=== PATIENT | female | born 1950 | race Caucasian/White ===

== ENCOUNTER 2017-08-26 14:02 | Observation (INO) | payer BC, OTHER ==
[2017-08-26 14:06] VITALS: BMI 30.7
--- NOTE | 2017-08-26 15:24 | RAD ---
HISTORY: Right wrist pain Study: Two views right forearm Comparison: None Findings: Acute cortical disruption of the distal radius with posterior lateral displacement of the distal frac ture fragment. IMPRESSION: 1. Acute fracture of the distal radius. Reported By:
[2017-08-26] MEDS ORDERED: DEMEROL INJ IM ONE (16:22)
[2017-08-26] MEDS ORDERED: PHENERGAN INJ 25 MG IM ONE (16:22)
[2017-08-26] MEDS ORDERED: DEMEROL INJ ONE (16:24)
[2017-08-26] MEDS ORDERED: PHENERGAN INJ 25 MG ONE (16:24)
--- NOTE | 2017-08-26 16:30 | DR.EXTPAIN ---
HPI - Time seen Time seen: 03:03 - PCP Primary Care Physician: NLD - Complaint/Symptoms Chief Complaint Doctor Comments: Patient states she was going up the steps at home with two bags of groceries and lost her balance and fell backwards landing on her right hand. State she is having right wrist pain but is able to move her fingers. She denies head trauma or LOC. States the pain is 8 of 10. States she is a patient of Dr. Vargas in [facility]. She denies chest pain, SOB or palpation. Chief Complaint:: PT. C/O RIGHT WRIST/FOREARM PAIN S/P FALL. DEFORMITY NOTED TO RIGHT WRIST AREA. - Nurses notes reviewed Nurses Notes Review: Yes - Source History Provided: Patient - Mode of arrival Mode of Arrival: Ambulatory - Timing Onset of Chief Complaint: 08/26/17 - Context History of: None, Arthritis - Associated signs and symptoms Associated Signs and Symptoms: Pain PMH - PMH Past Medical History: Yes Past Medical History: Depression, Kidney Stones Past Surgical History: Yes Surgical History: Appendectomy, Hysterectomy, Ortho Surgery, Lithotripsy Past Surgical History Comment: RIGHT FOOT, HEMORRHOIDECTOMY - Family History History of Family Medical Conditions: No - Social History Does patient currently use any type of tobacco product: No Have you used tobacco products in the last 12 months: No Type of Tobacco Use: None Does any household member use tobacco: No Alcohol Use: None Do you use any recreational Drugs:: No Lives With: Spouse Lives Where: Home - infectious screening In the last 2 months have you had wt loss of >10#?: NO Have you had fever, night sweats or hemotysis?: No Have you traveled outside the country in the last 6 months?: No Isolation: Standard ROS - Review of Systems Constitutional: No Symptoms Reported. negative: See HPI, Chills, Diaphoresis, Fever, Malaise, Weakness, Irritable, Fatigue, Loss of Appetite, Other Eyes: No Symptoms Reported ENTM: No Symptoms Reported Respiratoy: No Symptoms Reported. negative: See HPI, Productive Cough, Non- Productive Cough, Moist Cough, Dry Cough, Hacking Cough, Barking Cough, Brassy Cough, Orthopnea, Short of Breath, Stridor, Wheezing, Hemoptysis, Other Cardiovascular: No Symptoms Reported. negative: See HPI, Chest Pain, Edema, Palpitations, Syncope, Cyanosis, Skin Mottling, Other Gastrointestinal/Abdominal: No Symptoms Reported Genitourinary: No Symptoms Reported. negative: See HPI, Discharge, Dysuria, Frequency, Hematuria, Pain, Bleeding, Other Neurological: No Symptoms Reported Musculoskeletal: No Symptoms Reported, Right, Wrist (deformity) Integumentary: No Symptoms Reported Hematologic/Lymphatic: No Symptoms Reported Endocrine: No Symptoms Reported Psychiatric: No Symptoms Reported. negative: See HPI, Anxiety, Depression, Hallucinations, Excessive crying, Suicidal, Other PE - Vital Signs Vitals: Temperature 97.9 F Pulse Rate 65 Respiratory Rate 17 Blood Pressure 139/72 O2 Sat by Pulse Oximetry 97 - General Limitations: No Limitations General Appearance: Alert, In Distress (moderate) - Head Head Exam: Normal Inspection, Atraumatic, Normocephalic - Eyes Eye exam: Normal Appearance, PERRL, EOMI. negative: Scleral Icterus, Conjunctival Injection, Nystagmus, Miosis, Mydrasis, Periorbital Swelling, Periorbital Tenderness, Other - ENT ENT Exam: Normal Exam, Normal Oropharynx, Normal External Ear Exam, Mucous Membranes Moist, TM's Normal Bilaterally - Neck Neck Exam: Normal Inspection, Full ROM, Trachea Midline. negative: Tenderness, Meningismus, Lymphadenopathy, Thyromegaly, Other - Chest Chest Inspection: Normal Inspection, Symmetric Chest Wall Rise - Respiratory Respiratory Exam: Normal Lung Sounds Bilat Respiratory Exam: Bilateral Clear to Auscultation - Cardiovascular Cardiovascular Exam: Regular Rate, Normal Rhythm, Normal Heart Sounds - Abdominal Exam Abdominal Exam: Normal Inspection, Normal Bowel Sounds, Soft Abdominal Tenderness: negative: RUQ, RLQ, LUQ, LLQ, Epigastrium, Suprapubic, Diffuse, Mild, Moderate, Severe, Other - Extremities Extremities Exam: Normal Inspection, Full ROM, Tenderness (right wrist tender with deformity), Normal Capillary Refill - Upper Extremities Shoulder Exam: Normal Inspection, Full ROM Arm Exam: Normal Inspection, Full ROM, Tenderness (right wrist tender with swelling and deformity) Elbow Exam: Normal Inspection, Full ROM. negative: Tenderness, Swelling, Abrasion, Laceration, Ecchymosis, Deformity, Crepitus, Dislocation, Erythema, Effusion, Pain w/ pronation, Pain w/ Spuination, Tenderness over Radial Head, Other Forearm Exam: Normal Inspection, Full ROM Hand Exam: Normal Inspection, Full ROM, Tenderness (right wrist tender) Neuromotor Exam: Normal Exam Neurosensory Exam: Normal Exam Upper Ext. Vascular Exam: Capillary Refill (normal) - Lower Extremities Hip/Pelvis Exam: Normal Inspection, Full ROM Upper Leg Exam: Normal Inspection, Full ROM Knee Exam: Normal Inspection, Full ROM Lower Leg Exam: Normal Inspection, Full ROM Ankle Exam: Normal Inspection, Full ROM Foot/Toe Exam: Normal Inspection, Full ROM Neurovascular/Tendon Exam: Normal Capillary Refill Gait Exam: Not Tested/Not Observed - Back Back Exam: Normal Inspection, Full ROM - Neurological Neurological Exam: Alert, Oriented X3, CN II-XII Intact, Normal Gait, Reflexes Normal - Psychiatric Psychiatric Exam: Normal Affect, Normal Mood - Skin Skin Exam: Warm, Dry, Intact, Normal Color Type of Lesion: negative: Rash, Abscess, Laceration, Foreign Body, Bite/Sting, Abrasion, Other Distribution: negative: Generalized, Involves Palms/Soles, Head, Face, Neck, Thorax, Chest, Back, Abdomen, Genitals, LUE, LLE, RUE, RLE, Other Description: negative: Size, Tenderness, Erythematous, Swelling, Macular, Papular, Vesicular, Blisters, Cofluent, Bullous, Petechial, Purpuric, Urticarial , Crusting, Discharge, Fluctuant, Indurated, Other Course - Consultation Called: 16:41 Call Returned: 16:41 (Dr. Graham called states patient need surgery. Admit to Hospitalist) Consultation Comments: [id number] Dr. Chauhan called will admit patient. - Education/Counseling Education/Counseling: Patient, Family Educated On: Treatment, Diagnosis ROR - Labs Reviewed Laboratory Results Reviewed?: Yes Result Diagrams: 08/26/17 17:55 08/26/17 17:55 - XRAY XRAY Interpreted by: Radiologist (right wrist: Acute fracture of the distal radius.) - Diagnosis Discharge Problem: acute distal radius fracture, Contusion of right wrist, initial encounter - Discharge Plan Disposition: ADMITTED INPATIENT Condition: Stable - Follow ups/Referrals - Instructions
[2017-08-26] MEDS ORDERED: MORPHINE SULFATE INJ 2 MG INJ IVP PRN (16:43)
[2017-08-26 17:03] LABS: BASOPHILS % (AUTO) 0.7 % (0.2-1.0); EOSINOPHILS # (AUTO) 0.1 x10^3/uL (0.0-0.2); EOSINOPHILS % (AUTO) 1.5 % (0.9-2.9); HEMATOCRIT 39.9 % (36.0-47.0); HEMOGLOBIN 13.3 g/dL (12.0-16.0); LYMPHOCYTES # (AUTO) 0.9 X10^3/uL (1.3-2.9); LYMPHOCYTES % (AUTO) 14.4 % (21.0-51.0); MEAN CORPUSCULAR HEMOGLOBIN 27.4 pg (27.0-34.0); MEAN CORPUSCULAR HGB CONC 33.4 g/dL (33.0-35.0); MEAN CORPUSCULAR VOLUME 82.1 fL (80.0-100.0); MEAN PLATELET VOLUME 9.3 fL (7.4-11.0); MONOCYTES # (AUTO) 0.5 x10^3/uL (0.3-0.8); MONOCYTES % (AUTO) 7.8 % (0.0-13.0); NEUTROPHILS % (AUTO) 75.6 % (42.0-75.0); PLATELET COUNT 201 X10^3/uL (150.0-450.0); RED BLOOD COUNT 4.86 X10^6/uL (3.5-5.4); RED CELL DISTRIBUTION WIDTH 13.5 % (11.6-16.5); WHITE BLOOD COUNT 6.6 X10^3/uL (3.6-10.0)
[2017-08-26 17:18] LABS: BLOOD UREA NITROGEN 10 mg/dL (7-18); CALCIUM 8.2 mg/dL (8.5-10.1); CARBON DIOXIDE 25.6 mmol/L (21-32); CHLORIDE 106 mmol/L (98-107); CREATININE 0.78 mg/dL (0.55-1.02); SODIUM 142 mmol/L (136-145); TROPONIN I < 0.02 ng/mL (0-1.5); eGFR BLACK RACES > 60 (>60); eGFR NON BLACK RACES > 60 (>60)
--- NOTE | 2017-08-26 17:18 | RAD ---
HISTORY: 67-year-old female with right wrist and forearm pain status post fall. Study: Frontal view of the chest. Comparison: None. Findings: The trachea is midline. The cardiac silhouette is enlarged with low lung volumes and prominent inter stitium/perihilar lung markings. No consolidation, effusion or pneumothorax. Soft tissues are unrema rkable. Osseous structures are unremarkable. IMPRESSION: 1. No acute cardiopulmonary disease. Reported By:
[2017-08-26 17:22] LABS: ALANINE AMINOTRANSFERASE 22 Units/L (12-78); ALBUMIN 3.6 g/dL (3.4-5.0); ALKALINE PHOSPHATASE 131 Units/L (46-116); ASPARTATE AMINO TRANSFERASE 21 Units/L (15-37); CKMB % 1.9 % (<4); CREATINE KINASE 59 Units/L (26-192); CREATINE KINASE MB 1.1 ng/mL (0-4.0); TOTAL PROTEIN 6.5 g/dL (6.4-8.2)
[2017-08-26] MEDS: MORPHINE SULFATE INJ 2 MG INJ IVP SCH ×3 (17:41→20:39)
[2017-08-26] MEDS: NS 1000 ML 1,000 ML IV SCH (18:13)
[2017-08-26 18:16] LABS: BASOPHILS % (AUTO) 0.7 % (0.2-1.0); EOSINOPHILS # (AUTO) 0.1 x10^3/uL (0.0-0.2); EOSINOPHILS % (AUTO) 1.5 % (0.9-2.9); HEMATOCRIT 39.5 % (36.0-47.0); HEMOGLOBIN 13.3 g/dL (12.0-16.0); LYMPHOCYTES # (AUTO) 1.1 X10^3/uL (1.3-2.9); LYMPHOCYTES % (AUTO) 16.3 % (21.0-51.0); MEAN CORPUSCULAR HEMOGLOBIN 27.6 pg (27.0-34.0); MEAN CORPUSCULAR HGB CONC 33.6 g/dL (33.0-35.0); MEAN PLATELET VOLUME 9.5 fL (7.4-11.0); MONOCYTES # (AUTO) 0.5 x10^3/uL (0.3-0.8); MONOCYTES % (AUTO) 7.1 % (0.0-13.0); NEUTROPHILS # (AUTO) 4.9 x10^3/uL (2.2-4.8); NEUTROPHILS % (AUTO) 74.4 % (42.0-75.0); PLATELET COUNT 191 X10^3/uL (150.0-450.0); RED BLOOD COUNT 4.82 X10^6/uL (3.5-5.4); RED CELL DISTRIBUTION WIDTH 13.2 % (11.6-16.5); WHITE BLOOD COUNT 6.6 X10^3/uL (3.6-10.0)
[2017-08-26 18:24] LABS: ALANINE AMINOTRANSFERASE 21 Units/L (12-78); ALBUMIN 3.5 g/dL (3.4-5.0); ALKALINE PHOSPHATASE 131 Units/L (46-116); ASPARTATE AMINO TRANSFERASE 18 Units/L (15-37); BLOOD UREA NITROGEN 10 mg/dL (7-18); CALCIUM 8.2 mg/dL (8.5-10.1); CARBON DIOXIDE 25.4 mmol/L (21-32); CHLORIDE 108 mmol/L (98-107); CREATININE 0.69 mg/dL (0.55-1.02); SODIUM 142 mmol/L (136-145); TOTAL PROTEIN 6.4 g/dL (6.4-8.2); eGFR BLACK RACES > 60 (>60); eGFR NON BLACK RACES > 60 (>60)
[2017-08-26] MEDS: PEPCID TAB 20 MG PO SCH (20:11)
[2017-08-26 21:32] LABS: APPEARANCE,URINE CLEAR (CLEAR); BILIRUBIN,URINE NEGATIVE (NEGATIVE); BLOOD/HEMOGLOBIN,URINE NEGATIVE (NEGATIVE); COLOR,URINE YELLOW (YELLOW); GLUCOSE, URINE NEGATIVE (NEGATIVE); KETONES,URINE NEGATIVE (NEGATIVE); LEUKOCYTE ESTERASE ,URINE NEGATIVE (NEGATIVE); NITRITES,URINE NEGATIVE (NEGATIVE); PROTEIN,URINE NEGATIVE (NEGATIVE); UROBILINOGEN,URINE NORMAL (NORMAL)
[2017-08-26 21:35] LABS: AMORPHOUS SEDIMENT,UR TRACE /HPF (NEGATIVE); BACTERIA,URINE NEGATIVE /HPF (NEGATIVE); RBC,URINE RARE /HPF (NONE SEEN); SQUAMOUS EPITHELIAL CELL,UR RARE /HPF (NEGATIVE)
[2017-08-26] MEDS: PHENERGAN INJ 25 MG IV PRN (22:59)
[2017-08-26] MEDS: DEMEROL INJ IVP PRN (23:01)
[2017-08-27] MEDS: PHENERGAN INJ 25 MG IV PRN ×2 (03:00→08:00)
[2017-08-27] MEDS: DEMEROL INJ IVP PRN ×2 (03:00→08:00)
[2017-08-27] MEDS: NS 1000 ML 1,000 ML IV SCH ×2 (05:34→06:11)
[2017-08-27 05:38] LABS: BASOPHILS % (AUTO) 0.3 % (0.2-1.0); EOSINOPHILS # (AUTO) 0.2 x10^3/uL (0.0-0.2); HEMATOCRIT 35.1 % (36.0-47.0); HEMOGLOBIN 11.9 g/dL (12.0-16.0); LYMPHOCYTES % (AUTO) 18.8 % (21.0-51.0); MEAN CORPUSCULAR HEMOGLOBIN 27.8 pg (27.0-34.0); MEAN CORPUSCULAR HGB CONC 34.1 g/dL (33.0-35.0); MEAN CORPUSCULAR VOLUME 81.5 fL (80.0-100.0); MEAN PLATELET VOLUME 9.7 fL (7.4-11.0); MONOCYTES # (AUTO) 0.5 x10^3/uL (0.3-0.8); MONOCYTES % (AUTO) 9.2 % (0.0-13.0); NEUTROPHILS # (AUTO) 3.5 x10^3/uL (2.2-4.8); NEUTROPHILS % (AUTO) 68.7 % (42.0-75.0); PLATELET COUNT 160 X10^3/uL (150.0-450.0); RED CELL DISTRIBUTION WIDTH 13.2 % (11.6-16.5); WHITE BLOOD COUNT 5.1 X10^3/uL (3.6-10.0)
[2017-08-27 05:45] LABS: ALANINE AMINOTRANSFERASE 82 Units/L (12-78); ALBUMIN 2.8 g/dL (3.4-5.0); ALKALINE PHOSPHATASE 167 Units/L (46-116); ASPARTATE AMINO TRANSFERASE 158 Units/L (15-37); BLOOD UREA NITROGEN 9 mg/dL (7-18); CALCIUM 7.5 mg/dL (8.5-10.1); CARBON DIOXIDE 24.6 mmol/L (21-32); CHLORIDE 111 mmol/L (98-107); COR CA(FOR HYPOALB) 8.5 mg/dL (8.5-10.1); CREATININE 0.66 mg/dL (0.55-1.02); SODIUM 144 mmol/L (136-145); TOTAL PROTEIN 5.3 g/dL (6.4-8.2); eGFR BLACK RACES > 60 (>60); eGFR NON BLACK RACES > 60 (>60)
[2017-08-27] MEDS: PEPCID TAB 20 MG PO SCH (08:06)
[2017-08-27] MEDS ORDERED: BACITRACIN VIAL ONE (08:27)
[2017-08-27] MEDS ORDERED: MARCAINE 0.25% INJ ONE (08:27)
[2017-08-27] MEDS: FENTANYL INJ 250 mcg ONE ×3 (09:25→12:19)
[2017-08-27] MEDS: LR 1000 ML IV 1,000 ML IV ONE ×2 (09:25→10:00)
[2017-08-27] MEDS ORDERED: ZOFRAN INJ 4 MG VIAL ONE (09:27)
[2017-08-27] MEDS ORDERED: DIPRIVAN VIAL ONE (09:27)
[2017-08-27] MEDS ORDERED: REGLAN INJ 10 MG VIAL ONE (09:27)
[2017-08-27] MEDS ORDERED: SUPRANE IN ONE (09:27)
[2017-08-27] MEDS ORDERED: XYLOCAINE 2 % (PLAIN) ONE (09:27)
[2017-08-27] MEDS: ANCEF 1 GM IV PREMIX* 1 GM/50 ML BAG IV ONE ×2 (09:30→09:47)
--- NOTE | 2017-08-27 09:46 | DR.H&P ---
H&P - History & Physical for Day of: H&P Date: 08/26/17 - Chief Complaint Chief Complaint: FALL, RIGHT WRIST PAIN - Allergies Allergies/Adverse Reactions: Allergies Allergy/AdvReac Type Severity Reaction Status Date / Time codeine Allergy Verified 08/26/17 14:06 - History of Present Illness History of Present Illness: Pt is 67 WF er admission after presenting with co right wrist pain after trauma. Patient states she was going up the steps at home with two bags of groceries and lost her balance and fell backwards landing on her right hand. State she is having right wrist pain but is able to move her fingers. She denies head trauma or LOC. States the pain is 8 of 10. States she is a patient of Dr. Vargas in [facility]. She denies chest pain, SOB or palpation. - Past Medical History Past Medical History: Depression, Kidney Stones - Past Surgical History Surgical History: Appendectomy, Hysterectomy, Ortho Surgery, Lithotripsy - Social History Does patient currently use any type of tobacco product: No Have you used tobacco products in the last 12 months: No Type of Tobacco Use: None Does any household member use tobacco: No Alcohol Use: None Drug Use: None - Medications Home Medications: Venlafaxine HCl Ext Rel [EFFEXOR-XR 75 MG CAP *] 1 cap PO DAILY 08/26/17 [ History Confirmed 08/26/17] - Review of Systems Constitutional: No Symptoms Reported Eyes: No Symptoms Reported ENT: No Symptoms Reported Respiratory: No Symptoms Reported Cardiovascular: No Symptoms Reported Gastrointestinal: Nausea Genitourinary: No Symptoms Reported Musculoskeletal: Shoulder Pain, Arm Pain Skin: Bruising Neurological: No Symptoms Reported - Physical Exam Vital Signs: Temperature 98.3 F Pulse Rate [Left] 78 Pulse Rate 65 Respiratory Rate 20 Blood Pressure [Left Arm] 125/63 Blood Pressure 139/72 O2 Sat by Pulse Oximetry 93 Oriented: Normal Eyes: Normal Ear: Normal Nose: Normal Throat: Normal Respiratory: Clear Throughout Cardiovascular: Normal : Normal Auscultation: Bowel Sounds: Normal Palpation: Normal Tenderness: Normal Skin: Tender, Bruising, Ecchymosis Musculoskeletal: Right, Forearm, Wrist, Hand, Swelling, Tender Mood Description: Calm Speech Pattern: Clear, Appropriate - Assessment/Plan (1) Radial fracture Qualifiers: Encounter type: initial encounter Laterality: right Status: Acute Plan: ADMIT, PAIN CONTROL. ORTHO CONSULT, NPO AFTER MIDNIGHT FOR SURGICAL INTERVENTION
[2017-08-27] MEDS: BACTROBAN OINT ONE ×2 (10:16→11:32)
[2017-08-27] MEDS ORDERED: NS IRRIGATION 1000 ML 1,000 ML with BACITRACIN VIAL 50,000 UNT IR ONE ×2 (10:24)
[2017-08-27] MEDS ORDERED: REGLAN INJ 10 MG VIAL IVP PRN (11:55)
[2017-08-27] MEDS ORDERED: PHENERGAN INJ 25 MG IVP PRN (11:55)
[2017-08-27] MEDS ORDERED: DILAUDID INJ IVP PRN (11:55)
[2017-08-27] MEDS ORDERED: BENADRYL INJ 50 MG VIAL IVP PRN (11:55)
[2017-08-27] MEDS ORDERED: ZOFRAN INJ 4 MG VIAL IVP PRN (11:55)
[2017-08-27] MEDS ORDERED: PHENERGAN TAB 25 MG PO PRN (13:09)
[2017-08-27] MEDS: PERCOCET TAB 5/325 MG PO PRN ×2 (13:10→16:41)
--- NOTE | 2017-08-27 13:13 | PCM.PROG ---
Progress Note - Progress Note for Day of Date: 08/27/17 (scribe for Dr. Chauhan) - Subjective Subjective: PT IS 67 WF ER ADMIT ONE DAY AGO S/P FALL WITH RIGHT RADIAL FRACTURE. PT IS NPO FOR SURGICAL REPAIR PER DR GUTIERREZ THIS AM. PT STATES PAIN IS CONTROLLED, CO MILD NAUSEA. - Past Medical Family Social History Past Med/Fam/Surg Hx: No changes since H&P Allergies: Allergies codeine Allergy (Verified 08/26/17 14:06) - Review of Systems ROS: No change since H&P - Vital Signs and I&O's Vital Signs: Temperature 97.8 F Pulse Rate [Left] 78 Pulse Rate 89 Respiratory Rate 16 Blood Pressure [Left Arm] 125/63 Blood Pressure 151/63 O2 Sat by Pulse Oximetry 96 Intake and Output: Intake & Output 08/25/17 08/26/17 08/27/17 08/28/17 11:59 11:59 11:59 11:59 Intake Total 1480 Balance 1480 - Physical Exam Oriented: Normal Eyes: Normal Ear: Normal Nose: Normal Throat: Normal Respiratory: Normal Cardiovascular: Normal : Normal Auscultation: Bowel Sounds: Normal Tenderness: Normal Skin: Tender, Bruising, Ecchymosis Musculoskeletal: Right, Forearm, Wrist, Hand, Swelling, Tender Mood Description: Calm Speech Pattern: Clear, Appropriate - Laboratory and Diagnostics Result Diagrams: 08/27/17 04:05 08/27/17 04:05 Labs: Laboratory WBC 5.1 X10^3/uL (3.6-10.0) 08/27/17 04:05 RBC 4.30 X10^6/uL (3.5-5.4) 08/27/17 04:05 Hgb 11.9 g/dL (12.0-16.0) L 08/27/17 04:05 Hct 35.1 % (36.0-47.0) L 08/27/17 04:05 MCV 81.5 fL (80.0-100.0) 08/27/17 04:05 MCH 27.8 pg (27.0-34.0) 08/27/17 04:05 MCHC 34.1 g/dL (33.0-35.0) 08/27/17 04:05 RDW 13.2 % (11.6-16.5) 08/27/17 04:05 Plt Count 160 X10^3/uL (150.0-450.0) 08/27/17 04:05 MPV 9.7 fL (7.4-11.0) 08/27/17 04:05 Neut % 68.7 % (42.0-75.0) 08/27/17 04:05 Lymph % 18.8 % (21.0-51.0) L 08/27/17 04:05 Sampson % 9.2 % (0.0-13.0) 08/27/17 04:05 Eos % 3.0 % (0.9-2.9) H 08/27/17 04:05 Baso % 0.3 % (0.2-1.0) 08/27/17 04:05 Neut # 3.5 x10^3/uL (2.2-4.8) 08/27/17 04:05 Lymph # 1.0 X10^3/uL (1.3-2.9) L 08/27/17 04:05 Sampson # 0.5 x10^3/uL (0.3-0.8) 08/27/17 04:05 Eos # 0.2 x10^3/uL (0.0-0.2) 08/27/17 04:05 Baso # 0.0 X10^3/uL (0.0-0.1) 08/27/17 04:05 Absolute Nucleated RBC 0.1 /100WBC 08/27/17 04:05 INR Target Range - 08/26/17 16:53 INR 0.97 (0.8-1.3) 08/26/17 16:53 PTT 24.8 SECONDS (22.9-36.5) 08/26/17 16:53 PTT Comment - 08/26/17 16:53 Sodium 144 mmol/L (136-145) 08/27/17 04:05 Corrected Sodium TNP 08/27/17 04:05 Potassium 3.9 mmol/L (3.5-5.1) 08/27/17 04:05 Chloride 111 mmol/L (98-107) H 08/27/17 04:05 Carbon Dioxide 24.6 mmol/L (21-32) 08/27/17 04:05 BUN 9 mg/dL (7-18) 08/27/17 04:05 Creatinine 0.66 mg/dL (0.55-1.02) 08/27/17 04:05 Est GFR (MDRD) Af Amer > 60 (>60) 08/27/17 04:05 Est GFR (MDRD) Non-Af > 60 (>60) 08/27/17 04:05 Glucose 89 mg/dL (65-99) 08/27/17 04:05 Calcium 7.5 mg/dL (8.5-10.1) L 08/27/17 04:05 Corrected Calcium 8.5 mg/dL (8.5-10.1) 08/27/17 04:05 Magnesium 2.0 mg/dL (1.7-2.9) 08/26/17 16:53 Total Bilirubin 0.70 mg/dL (0.2-1.0) 08/27/17 04:05 AST 158 Units/L (15-37) H 08/27/17 04:05 ALT 82 Units/L (12-78) H 08/27/17 04:05 Alkaline Phosphatase 167 Units/L (46-116) H 08/27/17 04:05 Creatine Kinase 59 Units/L (26-192) 08/26/17 16:53 CK-MB (CK-2) 1.1 ng/mL (0-4.0) 08/26/17 16:53 CK/CKMB % Calc 1.9 % (<4) 08/26/17 16:53 Troponin I < 0.02 ng/mL (0-1.5) 08/26/17 16:53 Total Protein 5.3 g/dL (6.4-8.2) L 08/27/17 04:05 Albumin 2.8 g/dL (3.4-5.0) L 08/27/17 04:05 Globulin 2.5 g/dL (2.5-4.5) 08/27/17 04:05 Albumin/Globulin Ratio 1.1 Ratio (1.1-2.1) 08/27/17 04:05 Specimen Type Clean catch urine 08/26/17 20:33 Urine Color Yellow (YELLOW) 08/26/17 20:33 Urine Appearance Clear (CLEAR) 08/26/17 20:33 Urine pH 5.0 (5.0 - 8.0) 08/26/17 20:33 Ur Specific Moran 1.010 (1.000-1.030) 08/26/17 20:33 Urine Protein Negative (NEGATIVE) 08/26/17 20:33 Urine Glucose (UA) Negative (NEGATIVE) 08/26/17 20:33 Urine Ketones Negative (NEGATIVE) 08/26/17 20:33 Urine Occult Blood Negative (NEGATIVE) 08/26/17 20:33 Urine Nitrite Negative (NEGATIVE) 08/26/17 20:33 Urine Bilirubin Negative (NEGATIVE) 08/26/17 20:33 Urine Urobilinogen Normal (NORMAL) 08/26/17 20:33 Ur Leukocyte Esterase Negative (NEGATIVE) 08/26/17 20:33 Urine RBC Rare /HPF (NONE SEEN) 08/26/17 20:33 Urine WBC None seen /HPF (NONE SEEN) 08/26/17 20:33 Ur Squamous Epith Cells Rare /HPF (NEGATIVE) 08/26/17 20:33 Amorphous Sediment Trace /HPF (NEGATIVE) 08/26/17 20:33 Urine Bacteria Negative /HPF (NEGATIVE) 08/26/17 20:33 Ur Culture Indicated? No/not indicated 08/26/17 20:33 - Plan (1) Radial fracture Status: Acute Qualifiers: Encounter type: initial encounter Laterality: right Plan: NPO, ORTHO CONSULT. PAIN CONTROL,. CONFIRM AND RESUME HOME MEDS
[2017-08-27] MEDS ORDERED: KEFLEX CAP 500 MG PO ONE ×2 (13:56→14:31)
[2017-08-27] MEDS ORDERED: ZOFRAN TAB 4 MG PO PRN (14:16)
--- NOTE | 2017-08-27 14:40 | RAD ---
HISTORY: Postop Study: Three views right wrist Comparison: 08/26/2017 Findings: ORIF of the distal radius fracture is observed with overlying skin rachel. Improved anatomic alignme nt is noted. Generalized soft tissue swelling is observed. IMPRESSION: 1. ORIF of the distal radius fracture with improved anatomic alignment. Reported By:
[2017-08-27] MEDS ORDERED: VERSED ONE (15:46)
[2017-08-27 16:55] VITALS: BP 144/63
--- NOTE | 2017-08-29 17:49 | OR.GENERIC ---
Post-Op Note Generic - Post-Op Note Operative Report: PREOPERATIVE DIAGNOSIS-right WRIST DISTAL RADIUS FRACTURE, EXTRA-ARTICULAR, OSTEOPOROTIC POSTOPERATIVE DIAGNOSIS-right WRIST DISTAL RADIUS FRACTURE, EXTRA-ARTICULAR, OSTEOPOROTIC PROCEDURE-right WRIST DISTAL RADIUS FRACTURE OPEN REDUCTION AND FIXATION WITH PLATE AND SCREWS. IMPLANT USED- DARIELA distal radius locking compression plate INDICATION-patient is a 67-year-old female who had a fall at home while carrying grocery bags. She ended up falling on her RIGHT wrist and noticed severe pain and swelling and deformity. She was brought to the emergency room by the EMS. Clinical and radiological examination confirmed that it is a displaced distal radius fracture. She had medical issues and was admitted under medical Department.. A consult was placed for me. I examined the patient and history was again noted. She had a displaced extra-articular fracture of the distal end of RIGHT radius. Dorsal comminution was noted. It was osteoporotic fracture. Natural history and treatment discussions were done with the patient as well as the . Closed reduction with K wire versus open reduction internal fixation with plate and screws were discussed wwith the patient as well as the . Loss of reduction and collapse of the fracture site after closed reduction nails and possibility especially keeping in mind her dorsal comminution. So I suggested open reduction internal fixation with a plate and screw. They understood and verbalized the same. The risks and benefits involved was discussed with them. complications including but not limited to nfection, osteomyelitis, wound healing issues, nonunion, malunion, implant failure, loss of reduction, persistence of pain, just stiffness and arthritis, need for implant removal,, extensive tendon injury where he feels the complications which were discussed with them. They understood and verbalized to same. PREOPERATIVE- patient is seen in the preoperative holding area. The RIGHT upper limb was marked. Patient was met by the double end tenon operator.. She got an regional block. Again the consent was revisited. Patient consented for the procedure. She got an appropriate antibiotic. PROCEDURE- patient was brought to the operating room. Patient was placed supine on the operating table. RIGHT upper limb was placed on a hand table. An nonsterile pneumatic tourniquet was applied but was not inflated. Patient was placed under general anesthesia. Successful endotracheal intubation was completed. The RIGHT limb was prepped and draped. a trial reduction was tried with traction and countertraction, direct manipulation of the distal fragment dorsally, palmar flexion of the hand and pronation. Reduction was achieved anatomically and was confirmed with the C-arm. Multiple K wires placed to hold the reduction in place. Surgical incision was marked. Tourniquet was inflated. a modified FAIZA approach was chosen. The FCR tendon wwas palpated and a skin incision of about 10 cm placed laterally. Dissection carried down through subcutaneous tissue to expose the FCR tendon. The tendon sheath opened and the FCR tendon retracted ulnarly. Incision deepened between FPL and the radial artery. Care taken to preserve the radial artery and the median nerve. Retractors placed to expose the pronator quadratus muscle. aan L-shaped incision made in the portal quadratus along the radial and the distal end corresponding to the watershed line. Portal quadratus elevated with the help off periosteum elevator and MEGHNA retractors placed. tthe joint line identified with an hypodermic needle. Reduction was achieved before the skin incision. Reduction was maintained with the help of the K wires. anatomical reduction was obtained and was confirmed with C-arm. An appropriate plate was chosenand was placed iin the neck the watershed line. This was found to be placed appropriately in the AP and the lateral C-arm images. The 1st screw was placed in nonlocking mode on the distal ulnar side of the plate and checked under C- arm. The rest of the screws were also placed in a locking mode starting ulnarly and progressing radially. All the screws length where 70-70 percent of them measured and made sure that there was no penetration dorsally causing tendon irritation and rupture. This was confirmed in multiple images and no screw penetration was noted. The proximal screws were placed and the oblong as well as circular hole in a locking fashion. It is made sure that the articular surface was maintained as well as the radial tilt and the radial length. After the fixation the K wires were taken out. The distal radioulnar joint was assessedand was found to be stable. Thorough irrigation was done. The pronator quadratus was sutured over the plate. Tourniquet was deflated and hemostasis was obtained. Radial artery was found to be intact. The rest of the wound was closed in layers and made sure that the deep fascia was not closed. Sterile dressing was applied and the splint was reapplied. RECOVERY- patient was broken up from the surgery. Patient was successfully extubated. Patient was afebrile and her vitals stable. Her pain was well controlled. Patient had good capillary refill and good sensation distally. Postoperative x-rays showed an anatomically aligneddistal and radius with plate and screws. No complications were noted. The family was updated about the procedure. Postoperative instructions were given to them. Instructions to keep the dressing clean and dry. Instructions to ice the extremity without getting the dressing wet as well as elevation and active finger movements were discussed with them. Instructions to use prescribed medications was discussed with them. Instructions to follow-up was discussed with them. They understood and verbalized the same.
--- NOTE | 2017-09-02 14:49 | PCM.DCPLAN ---
Discharge Summary - Admission Date Date of Admission: 08/26/17 - Discharge Date Discharge Date: 08/27/17 - Admission Diagnoses (1) Contusion of right wrist, initial encounter Status: Acute (2) Radial fracture Status: Acute - Discharge Diagnoses Discharge Diagnosis: SAME ADMISSION DIAGNOSIS - Discharge Medications Discharge Medications: Venlafaxine HCl Ext Rel [EFFEXOR-XR 75 MG CAP *] 1 cap PO DAILY 08/26/17 [ History] Cephalexin [KEFLEX CAP 500 MG *] 500 mg PO TID #30 cap 08/27/17 [Rx] Oxycodone HCl/Acetaminophen [Percocet 5-325 mg Tablet] 1 - 2 each PO Q4-6H PRN # 30 tablet 08/27/17 [Rx] - Hospital Course Vital Signs: Temperature 98.0 F Pulse Rate [Left] 80 Pulse Rate 89 Respiratory Rate 18 Blood Pressure [Left Arm] 144/63 Blood Pressure 151/63 O2 Sat by Pulse Oximetry 94 Latest Lab Results: Laboratory Last Values WBC 5.1 X10^3/uL (3.6-10.0) 08/27/17 04:05 RBC 4.30 X10^6/uL (3.5-5.4) 08/27/17 04:05 Hgb 11.9 g/dL (12.0-16.0) L 08/27/17 04:05 Hct 35.1 % (36.0-47.0) L 08/27/17 04:05 MCV 81.5 fL (80.0-100.0) 08/27/17 04:05 MCH 27.8 pg (27.0-34.0) 08/27/17 04:05 MCHC 34.1 g/dL (33.0-35.0) 08/27/17 04:05 RDW 13.2 % (11.6-16.5) 08/27/17 04:05 Plt Count 160 X10^3/uL (150.0-450.0) 08/27/17 04:05 MPV 9.7 fL (7.4-11.0) 08/27/17 04:05 Neut % 68.7 % (42.0-75.0) 08/27/17 04:05 Lymph % 18.8 % (21.0-51.0) L 08/27/17 04:05 [place] % 9.2 % (0.0-13.0) 08/27/17 04:05 Eos % 3.0 % (0.9-2.9) H 08/27/17 04:05 Baso % 0.3 % (0.2-1.0) 08/27/17 04:05 Neut # 3.5 x10^3/uL (2.2-4.8) 08/27/17 04:05 Lymph # 1.0 X10^3/uL (1.3-2.9) L 08/27/17 04:05 [place] # 0.5 x10^3/uL (0.3-0.8) 08/27/17 04:05 Eos # 0.2 x10^3/uL (0.0-0.2) 08/27/17 04:05 Baso # 0.0 X10^3/uL (0.0-0.1) 08/27/17 04:05 Absolute Nucleated RBC 0.1 /100WBC 08/27/17 04:05 INR Target Range - 08/26/17 16:53 INR 0.97 (0.8-1.3) 08/26/17 16:53 PTT 24.8 SECONDS (22.9-36.5) 08/26/17 16:53 PTT Comment - 08/26/17 16:53 Sodium 144 mmol/L (136-145) 08/27/17 04:05 Corrected Sodium TNP 08/27/17 04:05 Potassium 3.9 mmol/L (3.5-5.1) 08/27/17 04:05 Chloride 111 mmol/L (98-107) H 08/27/17 04:05 Carbon Dioxide 24.6 mmol/L (21-32) 08/27/17 04:05 BUN 9 mg/dL (7-18) 08/27/17 04:05 Creatinine 0.66 mg/dL (0.55-1.02) 08/27/17 04:05 Est GFR (MDRD) Af Amer > 60 (>60) 08/27/17 04:05 Est GFR (MDRD) Non-Af > 60 (>60) 08/27/17 04:05 Glucose 89 mg/dL (65-99) 08/27/17 04:05 Calcium 7.5 mg/dL (8.5-10.1) L 08/27/17 04:05 Corrected Calcium 8.5 mg/dL (8.5-10.1) 08/27/17 04:05 Magnesium 2.0 mg/dL (1.7-2.9) 08/26/17 16:53 Total Bilirubin 0.70 mg/dL (0.2-1.0) 08/27/17 04:05 AST 158 Units/L (15-37) H 08/27/17 04:05 ALT 82 Units/L (12-78) H 08/27/17 04:05 Alkaline Phosphatase 167 Units/L (46-116) H 08/27/17 04:05 Creatine Kinase 59 Units/L (26-192) 08/26/17 16:53 CK-MB (CK-2) 1.1 ng/mL (0-4.0) 08/26/17 16:53 CK/CKMB % Calc 1.9 % (<4) 08/26/17 16:53 Troponin I < 0.02 ng/mL (0-1.5) 08/26/17 16:53 Total Protein 5.3 g/dL (6.4-8.2) L 08/27/17 04:05 Albumin 2.8 g/dL (3.4-5.0) L 08/27/17 04:05 Globulin 2.5 g/dL (2.5-4.5) 08/27/17 04:05 Albumin/Globulin Ratio 1.1 Ratio (1.1-2.1) 08/27/17 04:05 Specimen Type Clean catch urine 08/26/17 20:33 Urine Color Yellow (YELLOW) 08/26/17 20:33 Urine Appearance Clear (CLEAR) 08/26/17 20:33 Urine pH 5.0 (5.0 - 8.0) 08/26/17 20:33 Ur Specific [place] 1.010 (1.000-1.030) 08/26/17 20:33 Urine Protein Negative (NEGATIVE) 08/26/17 20:33 Urine Glucose (UA) Negative (NEGATIVE) 08/26/17 20:33 Urine Ketones Negative (NEGATIVE) 08/26/17 20:33 Urine Occult Blood Negative (NEGATIVE) 08/26/17 20:33 Urine Nitrite Negative (NEGATIVE) 08/26/17 20:33 Urine Bilirubin Negative (NEGATIVE) 08/26/17 20:33 Urine Urobilinogen Normal (NORMAL) 08/26/17 20:33 Ur Leukocyte Esterase Negative (NEGATIVE) 08/26/17 20:33 Urine RBC Rare /HPF (NONE SEEN) 08/26/17 20:33 Urine WBC None seen /HPF (NONE SEEN) 08/26/17 20:33 Ur Squamous Epith Cells Rare /HPF (NEGATIVE) 08/26/17 20:33 Amorphous Sediment Trace /HPF (NEGATIVE) 08/26/17 20:33 Urine Bacteria Negative /HPF (NEGATIVE) 08/26/17 20:33 Ur Culture Indicated? No/not indicated 08/26/17 20:33 Hospital Course: Pt is 67 WF er admission after presenting with co right wrist pain after trauma. Patient states she was going up the steps at home with two bags of groceries and lost her balance and fell backwards landing on her right hand. State was having right wrist pain but is able to move her fingers. Patient was consulted on by Dr Manning and underwent surgical repair. Patient [place] followed in OP setting. - Discharge Plan Disposition: HOME, SELF-CARE Condition: Stable Prescriptions: Cephalexin [KEFLEX CAP 500 MG *] 500 mg PO TID #30 cap Oxycodone HCl/Acetaminophen [Percocet 5-325 mg Tablet] 1 - 2 each PO Q4-6H PRN # 30 tablet PRN Reason: - Follow ups/Referrals Follow ups/Referrals: NFD,None [Primary Care Provider] - 3 days - Instructions Instructions: Radial Head Fracture, [id number] Additional Instructions: 1-LIGHT ACTIVITY 2-NO DRIVING 3-LEAVE DRESSING INTACT UNTIL FOLLOW-UP WITH DR. GUTIERREZ ON Monday10/31/2017 4-
== END 2017-08-27 17:25 | disposition home or self-care (01) ==
LOC: ER 14:10 → INTOOBSV 17:26 → MED/SURG 17:26
PROVIDERS: ADMIT Internal Medicine; ATTEND Internal Medicine
PROC: 0PSH04Z Reposition Right Radius with Internal Fixation Device, Open Approach (ICD-10-PCS; principal; 2017-08-27 09:30)
DX: S52.551A Other extraarticular fracture of lower end of right radius, initial encounter for closed fracture (principal); M25.531 Pain in right wrist; W10.8XXA Fall (on) (from) other stairs and steps, initial encounter; Y92.098 Other place in other non-institutional residence as the place of occurrence of the external cause
CPT/HCPCS: 29125; 36415; 71045; 73090; 73100; 76000; 80053; 81001; 82550; 82553; 83735; 84484; 85025; 85610; 85730; 93005; 93010; 94760; 96365; 96372; 99284; A4216; A4222; Q0169; S0020; G0378; J0690; J2001; J2175; J2250; J2270; J2405; J2550; J2765; J3010; J3490; J7120

== ENCOUNTER 2023-06-22 11:27 | Observation (INO) ==
[2023-06-22] MEDS ORDERED: NS 500 ML IV 500 ML IV ONE ×2 (12:09→12:19)
--- NOTE | 2023-06-22 12:09 | DR.GENAD ---
HPI Time Seen Time Seen by Provider: 06/22/23 12:09 PCP Primary Care Physician: Aayush Piedra Complaint/Symptoms Chief Complaint Doctors Comments: 73-year-old female presents for possible dehydration. Was recently hospitalized last week, had a large e sophageal/gastric obstruction. Still having difficulty in swallowing, can only get some broth then, small amounts. Cannot take any fluids this a.m., spit it right back up. Having increasing weakness. When she stands up she gets very lightheaded. Not urinating much, having only small BMs. Patient seen here by Dr. Power, he is planning to admit the patient for an additional EGD. Chief Complaint:: Pt states that since she was discharged from the hospital on 06/14/23 she has had increasing difficulty swallowing. Pt states that when she attempt to eat or drink it comes back up. Pt states that this is much worse today. She has only had some broth over the past few days. Pt has had decreased urinary output with dark urine. Pt also c/o severe generalized weakness. Self Treatment fo Chief Complaint: Pt was evaluated by Dr. Singh while admi tted and had EGD with removal of food bolus on 06/14/23 COVID-19 Coronavirus risk:travel/contact w/high risk person: No Has patient experienced Coronavirus symptoms: No Nurses notes reviewed Nurses Notes Review: Yes Source History Provided: Patient Mode of Arrival Mode of Arrival: Ambulatory Timing Onset of Chief Complaint: 06/14/23 PMH PMH Past Medical History: Yes Past Medical History: Depression, Headaches and Kidney Stones Past Medical History Comment: afib,hiatal hernia Past Surgical History: Yes Surgical History: Appendectomy, Hysterectomy, Ortho Surgery and Lithotripsy Past Surgical History Comment: EGD with removal of food bolus on 06/14/23 Family History History of Family Medical Conditions: Yes Family Medical History: Diabetes Mellitus, Cancer, [place], Coronary Artery Disease, Heart Failure and Hypertension Social History Does patient currently use any type of tobacco product: No Have you used tobacco products in the last 12 months: No Type of Tobacco Use: None Does any household member use tobacco: No Alcohol Use: None Do you use any recreational Drugs:: No Lives With: Family Lives Where: Home Travel Risk Coronavirus risk:travel/contact w/high risk person: No Has patient experienced Coronavirus symptoms: No Infectious screening In the last 2 months have you had wt loss of >10#?: NO Have you had fever, night sweats or hemotysis?: No Have you traveled outside the country in the last 6 months?: No Isolation: Standard ROS Review of Systems Constitutional: Weakness Eyes: No Symptoms Reported ENTM: No Symptoms Reported Respiratoy: No Symptoms Reported Cardiovascular: No Symptoms Reported Gastrointestinal/Abdominal: See HPI Genitourinary: Other (Decreased urination) Neurological: Weakness and Dizziness Musculoskeletal: No Symptoms Reported Integumentary: No Symptoms Reported All Other Systems: Reviewed and Negative PE Vital Signs Vitals: Vital Signs Temperature 97.9 F Pulse Rate [Left] 62 Pulse Rate 84 Respiratory Rate 16 Respiratory Rate 20 Blood Pressure [Left Arm] 113/57 Blood Pressure 113/59 O2 Sat by Pulse Oximetry 100 O2 Sat by Pulse Oximetry 100 General General Appearance: Alert and In No Apparent Distress Eyes Eye exam: PERRL and EOMI ENT ENT Exam: Normal Oropharynx and Mucous Membranes Moist Neck Neck Exam: Normal Inspection Respiratory Respiratory Exam: Normal Lung Sounds Bilat; negative Accessory Muscle Use or Respiratory Distress Cardiovascular Cardiovascular Exam: Regular Rate, Normal Rhythm and Normal Heart Sounds Abdominal Exam Abdominal Exam: Normal Bowel Sounds, Soft and Tenderness (Mild epigastric, no guarding or rebound) Extremities Extremities Exam: Normal Inspection Neurologic Neurological Exam: Alert, Oriented X3 and CN II-XII Intact; negative Motor Sensory Deficit Skin Skin Exam: Warm and Dry COURSE Treatment Treatment: 73-year-old female, treated for esophageal/gastric obstruction last week. Having worsening difficulty in swallowing, able to swallow water this a.m. clinically appears a bit dehydrated. Workup initiated. Patient given IV fluids. Patient was seen by Dr. Power, he would like to admit the patient in the hospital and plan on a repeat EGD. Labs showed troponin to be elevated a bit. 2 hr repeat not trending up. Will admit to medicine, consult with Dr Singh ROR Labs Reviewed Laboratory Results Reviewed?: Yes 06/24/23 06:10 06/24/23 06:10 Laboratory: WBC 7.8 X10^3/uL (3.6-10.0) 06/22/23 12:34 RBC 5.52 X10^6/uL (3.5-5.4) H 06/22/23 12:34 Hgb 13.7 g/dL (12.0-16.0) 06/22/23 12:34 Hct 42.4 % (36.0-47.0) 06/22/23 12:34 MCV 76.8 fL (80.0-100.0) L 06/22/23 12:34 MCH 24.8 pg (27.0-34.0) L 06/22/23 12:34 MCHC 32.2 g/dL (33.0-35.0) L 06/22/23 12:34 RDW 16.4 % (11.6-16.5) 06/22/23 12:34 Plt Count 248 X10^3/uL (150.0-450.0) 06/22/23 12:34 MPV 9.9 fL (7.4-11.0) 06/22/23 12:34 Neut % (Auto) 74.3 % (42.0-75.0) 06/22/23 12:34 Lymph % (Auto) 13.4 % (21.0-51.0) L 06/22/23 12:34 [place] % (Auto) 8.8 % (0.0-13.0) 06/22/23 12:34 Eos % (Auto) 3.0 % (0.9-2.9) H 06/22/23 12:34 Baso % (Auto) 0.5 % (0.2-1.0) 06/22/23 12:34 Neut # (Auto) 5.8 x10^3/uL (2.2-4.8) H 06/22/23 12:34 Lymph # (Auto) 1.0 X10^3/uL (1.3-2.9) L 06/22/23 12:34 [place] # (Auto) 0.7 x10^3/uL (0.3-0.8) 06/22/23 12:34 Eos # (Auto) 0.2 x10^3/uL (0.0-0.2) 06/22/23 12:34 Baso # (Auto) 0.0 X10^3/uL (0.0-0.1) 06/22/23 12:34 Absolute Nucleated RBC 0.0 /100WBC 06/22/23 12:34 PT 13.9 SECONDS (11.8-14.3) 06/22/23 12:34 INR Target Range - 06/22/23 12:34 INR 1.09 (0.8-1.3) 06/22/23 12:34 APTT 24.2 SECONDS (22.9-36.5) 06/22/23 12:34 PTT Comment - 06/22/23 12:34 Sodium 140 mmol/L (136-145) 06/22/23 12:34 Corrected Sodium TNP 06/22/23 12:34 Potassium 3.8 mmol/L (3.5-5.1) 06/22/23 12:34 Chloride 100 mmol/L (98-107) 06/22/23 12:34 Carbon Dioxide 24.8 mmol/L (21-32) 06/22/23 12:34 BUN 17 mg/dL (7-18) 06/22/23 12:34 Creatinine 1.22 mg/dL (0.55-1.02) H 06/22/23 12:34 Est GFR (MDRD) Af Amer 55 (>60) L 06/22/23 12:34 Est GFR (MDRD) Non-Af 46 (>60) L 06/22/23 12:34 Glucose 91 mg/dL (65-99) 06/22/23 12:34 Calcium 8.9 mg/dL (8.5-10.1) 06/22/23 12:34 Corrected Calcium 9.5 mg/dL (8.5-10.1) 06/22/23 12:34 Total Bilirubin 0.70 mg/dL (0.2-1.0) 06/22/23 12:34 AST 46 Units/L (15-37) H 06/22/23 12:34 ALT 24 Units/L (12-78) 06/22/23 12:34 Alkaline Phosphatase 99 Units/L (46-116) 06/22/23 12:34 Troponin I High Sens 98.2 ng/L (4.0-60.0) H* 06/22/23 14:20 Total Protein 6.9 g/dL (6.4-8.2) 06/22/23 12:34 Albumin 3.2 g/dL (3.4-5.0) L 06/22/23 12:34 Globulin 3.7 g/dL (2.5-4.5) 06/22/23 12:34 Albumin/Globulin Ratio 0.9 Ratio (1.1-2.1) L 06/22/23 12:34 Lipase 35 Units/L (16-77) 06/22/23 12:34 Troponin e;evated to 99 EKG Rate: 59 [place]: Normal Rhythm: SB ST: Nonsp (+ prolonged QT interval) Opioid Opioid Risk Tool Age (Vasyl box if 16-45): No History of Preadolescent Sexual Abuse: No Total: 0 Total Score Risk Category: Low Risk Copyright: Ovidio NOLASCO predicting aberrant behaviors Discharge Plan Diagnosis Discharge Problem: Weakness, Dysphagia, Elevated troponin Discharge Plan Patient Disposition: ADMITTED INPATIENT Condition: Stable
[2023-06-22] MEDS ORDERED: ZOFRAN INJ 4 MG VIAL IVP ONE (12:10)
[2023-06-22] MEDS ORDERED: PROTONIX INJ 40 MG VIAL IVP ONE (12:10)
[2023-06-22] MEDS ORDERED: ZOFRAN INJ 4 MG VIAL ONE (12:19)
[2023-06-22] MEDS ORDERED: PROTONIX INJ 40 MG VIAL ONE (12:19)
[2023-06-22 12:44] LABS: BASOPHILS % (AUTO) 0.5 % (0.2-1.0); EOSINOPHILS # (AUTO) 0.2 x10^3/uL (0.0-0.2); HEMATOCRIT 42.4 % (36.0-47.0); HEMOGLOBIN 13.7 g/dL (12.0-16.0); LYMPHOCYTES % (AUTO) 13.4 % (21.0-51.0); MEAN CORPUSCULAR HEMOGLOBIN 24.8 pg (27.0-34.0); MEAN CORPUSCULAR HGB CONC 32.2 g/dL (33.0-35.0); MEAN CORPUSCULAR VOLUME 76.8 fL (80.0-100.0); MEAN PLATELET VOLUME 9.9 fL (7.4-11.0); MONOCYTES # (AUTO) 0.7 x10^3/uL (0.3-0.8); MONOCYTES % (AUTO) 8.8 % (0.0-13.0); NEUTROPHILS # (AUTO) 5.8 x10^3/uL (2.2-4.8); NEUTROPHILS % (AUTO) 74.3 % (42.0-75.0); PLATELET COUNT 248 X10^3/uL (150.0-450.0); RED BLOOD COUNT 5.52 X10^6/uL (3.5-5.4); RED CELL DISTRIBUTION WIDTH 16.4 % (11.6-16.5); WHITE BLOOD COUNT 7.8 X10^3/uL (3.6-10.0)
[2023-06-22 12:48] LABS: INR 1.09 (0.8-1.3)
--- NOTE | 2023-06-22 12:55 | EKG ---
Test Reason : difficulty swallowing x4 days, pre-op Blood Pressure : */* mmHG Vent. Rate : 59 BPM Atrial Rate : 59 BPM P-R Int : 140 ms QRS Dur : 98 ms QT Int : 556 ms P-R-T Axes : 47 25 -33 degrees QTc Int : 550 ms Sinus bradycardia Prolonged QT Abnormal ECG No previous ECGs available Confirmed by Ramo Harvey ([id number]) on 06/23/2023 10:39:40 AM Referred By: Confirmed By: Ramo Harvey
[2023-06-22] MEDS ORDERED: D5 1/2 NS 1,000 ML 1,000 ML IV ONE ×2 (13:09→16:47)
[2023-06-22 13:11] LABS: ALANINE AMINOTRANSFERASE 24 Units/L (12-78); ALBUMIN 3.2 g/dL (3.4-5.0); ALKALINE PHOSPHATASE 99 Units/L (46-116); ASPARTATE AMINO TRANSFERASE 46 Units/L (15-37); BLOOD UREA NITROGEN 17 mg/dL (7-18); CALCIUM 8.9 mg/dL (8.5-10.1); CARBON DIOXIDE 24.8 mmol/L (21-32); CHLORIDE 100 mmol/L (98-107); COR CA(FOR HYPOALB) 9.5 mg/dL (8.5-10.1); CREATININE 1.22 mg/dL (0.55-1.02); GLUCOSE 91 mg/dL (65-99); LIPASE 35 Units/L (16-77); POTASSIUM 3.8 mmol/L (3.5-5.1); SODIUM 140 mmol/L (136-145); TOTAL PROTEIN 6.9 g/dL (6.4-8.2); eGFR NON BLACK RACES 46 (>60)
[2023-06-22] MEDS: D5 1/2 NS 1,000 ML 1,000 ML IV SCH ×2 (13:12→20:20)
[2023-06-22] MEDS ORDERED: CONSULT PHARMACY - POTASSIUM & MAGNESIUM XX SCH (17:00)
[2023-06-22] MEDS ORDERED: NS + KCL 20 MEQ/L 1,000 ML IV SCH (21:00)
[2023-06-22] MEDS: PROTONIX INJ 40 MG VIAL IVP SCH (21:18)
[2023-06-22] MEDS: MAGNESIUM SULFATE 1 GRAM/100 mL PREMIX 1 G/100 ML BAG IV SCH ×2 (22:32→23:42)
--- NOTE | 2023-06-23 00:28 | RAD ---
EXAM:CHEST, 1 VIEWHISTORY:DIFFICULTY SWALLOWING;COMPARISON:06/13/2023FINDINGS: are clear without focal infiltrate or effusion. The bony thorax is unremarkable.IMPRESSION:No acute cardiopulmonary disease.THIS IS AN ELECTRONICALLY VERIFIED FINAL [id number]/23/2023 12:25 AM - Electronically signed by Jerzy Hamm MD
[2023-06-23] MEDS: D5 1/2 NS 1,000 ML 1,000 ML IV SCH (05:55)
--- NOTE | 2023-06-23 06:41 | EKG ---
Test Reason : chest pain Blood Pressure : */* mmHG Vent. Rate : 60 BPM Atrial Rate : 60 BPM P-R Int : 150 ms QRS Dur : 100 ms QT Int : 486 ms P-R-T Axes : 75 58 -66 degrees QTc Int : 486 ms Normal sinus rhythm Septal infarct , age undetermined Abnormal ECG When compared with ECG of 22-JUN-2023 12:52, (Unconfirmed) Non-specific change in ST segment in Anterior leads T wave inversion now evident in Anterolateral leads QT has shortened Confirmed by Sagar Monroe MD ([id number]) on 06/23/2023 8:23:46 AM Referred By: Confirmed By: Sagar Monroe MD
[2023-06-23 06:43] LABS: BASOPHILS # (AUTO) 0.1 X10^3/uL (0.0-0.1); BASOPHILS % (AUTO) 1.1 % (0.2-1.0); EOSINOPHILS # (AUTO) 0.3 x10^3/uL (0.0-0.2); EOSINOPHILS % (AUTO) 5.5 % (0.9-2.9); HEMATOCRIT 34.8 % (36.0-47.0); HEMOGLOBIN 11.3 g/dL (12.0-16.0); LYMPHOCYTES # (AUTO) 0.9 X10^3/uL (1.3-2.9); LYMPHOCYTES % (AUTO) 20.7 % (21.0-51.0); MEAN CORPUSCULAR HEMOGLOBIN 24.6 pg (27.0-34.0); MEAN CORPUSCULAR HGB CONC 32.5 g/dL (33.0-35.0); MEAN CORPUSCULAR VOLUME 75.5 fL (80.0-100.0); MEAN PLATELET VOLUME 10.3 fL (7.4-11.0); MONOCYTES # (AUTO) 0.7 x10^3/uL (0.3-0.8); NEUTROPHILS # (AUTO) 2.6 x10^3/uL (2.2-4.8); NEUTROPHILS % (AUTO) 57.7 % (42.0-75.0); PLATELET COUNT 205 X10^3/uL (150.0-450.0); RED CELL DISTRIBUTION WIDTH 15.9 % (11.6-16.5); WHITE BLOOD COUNT 4.6 X10^3/uL (3.6-10.0)
[2023-06-23 07:18] LABS: ALANINE AMINOTRANSFERASE 17 Units/L (12-78); ALBUMIN 2.4 g/dL (3.4-5.0); ALKALINE PHOSPHATASE 75 Units/L (46-116); ASPARTATE AMINO TRANSFERASE 25 Units/L (15-37); BLOOD UREA NITROGEN 14 mg/dL (7-18); CARBON DIOXIDE 27.3 mmol/L (21-32); CHLORIDE 105 mmol/L (98-107); COR CA(FOR HYPOALB) 9.3 mg/dL (8.5-10.1); COR NA(FOR HYPERGLY) 143 mmol/L (136-145); CREATININE 1.09 mg/dL (0.55-1.02); GLUCOSE 111 mg/dL (65-99); MAGNESIUM 2.1 mg/dL (2.0-2.9); SODIUM 143 mmol/L (136-145); TOTAL PROTEIN 5.1 g/dL (6.4-8.2); eGFR NON BLACK RACES 52 (>60)
[2023-06-23 07:20] LABS: POTASSIUM 2.4 mmol/L (3.5-5.1)
[2023-06-23] MEDS ORDERED: CONSULT PHARMACY - POTASSIUM & MAGNESIUM XX SCH ×2 (08:00)
[2023-06-23] MEDS: PROTONIX INJ 40 MG VIAL IVP SCH ×2 (08:38→20:45)
[2023-06-23] MEDS: D5 1/2 NS + KCL 20 MEQ/L 1,000 ML IV SCH ×2 (08:38→16:47)
[2023-06-23] MEDS: LOVENOX INJ 40 MG SYR SC SCH (10:12)
--- NOTE | 2023-06-23 15:43 | DR.H&P ---
H&P History & Physical for Day of: H&P Date: 06/22/23 Chief Complaint Chief Complaint: CANNOT SWALLOW, DEHYDRATED Allergies Allergies Allergy/AdvReac Type Severity Reaction Status Date / Time codeine Allergy Verified 06/22/23 11:41 morphine Allergy Verified 06/22/23 11:41 History of Present Illness History of Present Illness: PT IS 73 WF, ER ADMISSION AFTER PRESENTING WITH CO OF DYSPHAGIA. PT RECENTLY HAD EGD ON 06/[address] ESCOBEDO DUE TO FOOD BOLUS OBSTRUCTION. PT REPORTS SHE CANNOT KEEP LIQUIDS OR SOLIDS DOWN, "FOOD GETS STUCK IN THROAT AND COMES BACK UP". PT HAS PMH OF CHF, AFIB ON DETENTION ANTICOGULATION THERAPY. PT REPORTS SHE HAS NOT BEEN ABLE TO TAKE HER ELIQUIS OR AMIODARONE FOR ~ 3 DAYS. PT WAS HYPOKALEMIC ON ADMISSION. Past Medical History Past Medical History: Depression, Headaches and Kidney Stones Past Surgical History Surgical History: Appendectomy, Hysterectomy, Ortho Surgery and Lithotripsy Family History Family Medical History: Diabetes Mellitus, Cancer, [place], Coronary Artery Disease, Heart Failure and Hypertension Social History Does patient currently use any type of tobacco product: No Have you used tobacco products in the last 12 months: No Type of Tobacco Use: None Does any household member use tobacco: No Alcohol Use: None Drug Use: None Medications Home Medications: Home Medications Medication Instructions Recorded Confirmed Type amiodarone 200 mg tablet 200 mg PO BID 06/13/23 06/22/23 History apixaban 5 mg tablet (Eliquis) 5 mg PO BID 06/13/23 06/22/23 History duloxetine 30 mg capsule,delayed 30 mg PO QDAY 06/13/23 06/22/23 History release duloxetine 60 mg capsule,delayed 60 mg PO QDAY 06/13/23 06/22/23 History release Labs 06/23/23 05:43 06/23/23 05:43 Labs: Laboratory WBC 4.6 X10^3/uL (3.6-10.0) 06/23/23 05:43 RBC 4.60 X10^6/uL (3.5-5.4) 06/23/23 05:43 Hgb 11.3 g/dL (12.0-16.0) L D 06/23/23 05:43 Hct 34.8 % (36.0-47.0) L 06/23/23 05:43 MCV 75.5 fL (80.0-100.0) L 06/23/23 05:43 MCH 24.6 pg (27.0-34.0) L 06/23/23 05:43 MCHC 32.5 g/dL (33.0-35.0) L 06/23/23 05:43 RDW 15.9 % (11.6-16.5) 06/23/23 05:43 Plt Count 205 X10^3/uL (150.0-450.0) 06/23/23 05:43 MPV 10.3 fL (7.4-11.0) 06/23/23 05:43 Neut % (Auto) 57.7 % (42.0-75.0) 06/23/23 05:43 Lymph % (Auto) 20.7 % (21.0-51.0) L 06/23/23 05:43 [place] % (Auto) 15.0 % (0.0-13.0) H 06/23/23 05:43 Eos % (Auto) 5.5 % (0.9-2.9) H 06/23/23 05:43 Baso % (Auto) 1.1 % (0.2-1.0) H 06/23/23 05:43 Neut # (Auto) 2.6 x10^3/uL (2.2-4.8) 06/23/23 05:43 Lymph # (Auto) 0.9 X10^3/uL (1.3-2.9) L 06/23/23 05:43 [place] # (Auto) 0.7 x10^3/uL (0.3-0.8) 06/23/23 05:43 Eos # (Auto) 0.3 x10^3/uL (0.0-0.2) H 06/23/23 05:43 Baso # (Auto) 0.1 X10^3/uL (0.0-0.1) 06/23/23 05:43 Absolute Nucleated RBC 0.0 /100WBC 06/23/23 05:43 PT 13.9 SECONDS (11.8-14.3) 06/22/23 12:34 INR Target Range - 06/22/23 12:34 INR 1.09 (0.8-1.3) 06/22/23 12:34 APTT 24.2 SECONDS (22.9-36.5) 06/22/23 12:34 PTT Comment - 06/22/23 12:34 Sodium 143 mmol/L (136-145) 06/23/23 05:43 Corrected Sodium 143 mmol/L (136-145) 06/23/23 05:43 Potassium 2.4 mmol/L (3.5-5.1) L* 06/23/23 05:43 Chloride 105 mmol/L (98-107) 06/23/23 05:43 Carbon Dioxide 27.3 mmol/L (21-32) 06/23/23 05:43 BUN 14 mg/dL (7-18) 06/23/23 05:43 Creatinine 1.09 mg/dL (0.55-1.02) H 06/23/23 05:43 Est GFR (MDRD) Af Amer > 60 (>60) 06/23/23 05:43 Est GFR (MDRD) Non-Af 52 (>60) L 06/23/23 05:43 Glucose 111 mg/dL (65-99) H 06/23/23 05:43 Calcium 8.0 mg/dL (8.5-10.1) L 06/23/23 05:43 Corrected Calcium 9.3 mg/dL (8.5-10.1) 06/23/23 05:43 Magnesium 2.1 mg/dL (2.0-2.9) 06/23/23 05:43 Total Bilirubin 0.50 mg/dL (0.2-1.0) 06/23/23 05:43 AST 25 Units/L (15-37) 06/23/23 05:43 ALT 17 Units/L (12-78) 06/23/23 05:43 Alkaline Phosphatase 75 Units/L (46-116) 06/23/23 05:43 Creatine Kinase 188 Units/L (26-192) 06/23/23 05:43 Troponin I High Sens 68.0 ng/L (4.0-60.0) H* 06/23/23 12:35 Total Protein 5.1 g/dL (6.4-8.2) L 06/23/23 05:43 Albumin 2.4 g/dL (3.4-5.0) L 06/23/23 05:43 Globulin 2.7 g/dL (2.5-4.5) 06/23/23 05:43 Albumin/Globulin Ratio 0.9 Ratio (1.1-2.1) L 06/23/23 05:43 Lipase 35 Units/L (16-77) 06/22/23 12:34 Physical Exam Vital Signs: Vital Signs Temperature 97.5 F Temperature 97.8 F Pulse Rate [Left] 58 Pulse Rate [Left] 54 Respiratory Rate 20 Respiratory Rate 20 Blood Pressure [Left Arm] 116/55 Blood Pressure [Left Arm] 131/58 O2 Sat by Pulse Oximetry 100 O2 Sat by Pulse Oximetry 100 Oriented: Normal Eyes: Normal Ear: Normal Nose: Normal Throat: Dry Respiratory: RLL Diminished and LLL Diminished Cardiovascular: Bradycardia Auscultation: Bowel Sounds: Normal Palpation: Normal Tenderness: Normal Skin: Decreased [place] Musculoskeletal: Knee (SCARS TO BILATERAL KNEES FROM TKR) Psychiatric: Normal Mood Description: Calm Affect: Normal Speech Pattern: Clear Assessment/Plan (1) Acute hypokalemia: Narrative Support Text: ADMIT, IV HYDRATION AND POTASSIUM REPLACEMENT THERAPY IV PROTONIX BID NPO AFTER MIDNIGHT FOR GI CONSULT VERIFY HOME MEDICATIONS CE AND EKG Status: Acute (2) Weakness: Status: Acute (3) Dysphagia: Status: Acute (4) Elevated troponin: Status: Acute (5) Afib: Status: Acute
--- NOTE | 2023-06-23 15:49 | PCM.PROG ---
Progress Note Progress Note for Day of Date of Exam: 06/23/23 Subjective Subjective: PT IS 73 WF, ER ADMISSION WITH DYSPHAGIA, DEHYDRATION WITH HYPOKALEMIA. PT HAS PMH OF AFIB, CONTROLLED WITH AMIODARONE AND JAIL USE OF ELIQUIS. PT DENIES CHEST PAIN, STATES SHE HAS HAD "INDIGESTION" DR ESCOBEDO CONSULTING AND PLANNED FOR POSSIBLE EGD THIS AM. PT HAD ELEVATED TROPONIN LEVELS SINCE ADMISSION WITH REPEAT TRENDING DOWN. POTASSIUM 2.4 THIS AM. SHE IS ON GENTLE IV POTASSIUM REPLACEMENT AND ANESTHESIA AGREE WITH ELECTROLYTE REPLACEMENT THERAPY AND STABLE CARDIAC CONDITION PRIOR TO SEDATION. PLAN TO RESTART PO AMIODARONE IF PT CAN TOLERATE, LOVENOX SQ SINCE PT HAS NOT BEEN TAKING ELIQUIS. HGB 11.3 ON AM LABS. BUN/CREAT 09/07.. PLAN TO CONTINUE SERIAL CE AND REPEAT POTASSIUM LEVEL THIS AFTERNOON, CBC AND CMP IN THE AM. Past Medical Family Social History Allergies: Allergies codeine Allergy (Verified 06/22/23 11:41) morphine Allergy (Verified 06/22/23 11:41) Vital Signs and I&O's Vital Signs: Vital Signs Temperature 97.5 F Temperature 97.8 F Pulse Rate [Left] 58 Pulse Rate [Left] 54 Respiratory Rate 20 Respiratory Rate 20 Blood Pressure [Left Arm] 116/55 Blood Pressure [Left Arm] 131/58 O2 Sat by Pulse Oximetry 100 O2 Sat by Pulse Oximetry 100 Intake and Output: Intake & Output 06/21/23 06/22/23 06/23/23 06/24/23 11:59 11:59 11:59 11:59 Intake Total 2206 / 2206 1151 / 1151 Balance 2206 / 2206 1151 / 1151 Physical Exam Oriented: Normal Eyes: Normal Ear: Normal Nose: Normal Throat: Dry Cardiovascular: Bradycardia Auscultation: Bowel Sounds: Normal Tenderness: Normal Skin: Decreased [place] Musculoskeletal: Knee (SCARS TO BILATERAL KNEES FROM TKR) Psychiatric: Normal Mood Description: Calm Affect: Normal Speech Pattern: Clear Laboratory and Diagnostics 06/23/23 05:43 06/23/23 05:43 Labs: Laboratory WBC 4.6 X10^3/uL (3.6-10.0) 06/23/23 05:43 RBC 4.60 X10^6/uL (3.5-5.4) 06/23/23 05:43 Hgb 11.3 g/dL (12.0-16.0) L D 06/23/23 05:43 Hct 34.8 % (36.0-47.0) L 06/23/23 05:43 MCV 75.5 fL (80.0-100.0) L 06/23/23 05:43 MCH 24.6 pg (27.0-34.0) L 06/23/23 05:43 MCHC 32.5 g/dL (33.0-35.0) L 06/23/23 05:43 RDW 15.9 % (11.6-16.5) 06/23/23 05:43 Plt Count 205 X10^3/uL (150.0-450.0) 06/23/23 05:43 MPV 10.3 fL (7.4-11.0) 06/23/23 05:43 Neut % (Auto) 57.7 % (42.0-75.0) 06/23/23 05:43 Lymph % (Auto) 20.7 % (21.0-51.0) L 06/23/23 05:43 [place] % (Auto) 15.0 % (0.0-13.0) H 06/23/23 05:43 Eos % (Auto) 5.5 % (0.9-2.9) H 06/23/23 05:43 Baso % (Auto) 1.1 % (0.2-1.0) H 06/23/23 05:43 Neut # (Auto) 2.6 x10^3/uL (2.2-4.8) 06/23/23 05:43 Lymph # (Auto) 0.9 X10^3/uL (1.3-2.9) L 06/23/23 05:43 Clare # (Auto) 0.7 x10^3/uL (0.3-0.8) 06/23/23 05:43 Eos # (Auto) 0.3 x10^3/uL (0.0-0.2) H 06/23/23 05:43 Baso # (Auto) 0.1 X10^3/uL (0.0-0.1) 06/23/23 05:43 Absolute Nucleated RBC 0.0 /100WBC 06/23/23 05:43 PT 13.9 SECONDS (11.8-14.3) 06/22/23 12:34 INR Target Range - 06/22/23 12:34 INR 1.09 (0.8-1.3) 06/22/23 12:34 APTT 24.2 SECONDS (22.9-36.5) 06/22/23 12:34 PTT Comment - 06/22/23 12:34 Sodium 143 mmol/L (136-145) 06/23/23 05:43 Corrected Sodium 143 mmol/L (136-145) 06/23/23 05:43 Potassium 2.4 mmol/L (3.5-5.1) L* 06/23/23 05:43 Chloride 105 mmol/L (98-107) 06/23/23 05:43 Carbon Dioxide 27.3 mmol/L (21-32) 06/23/23 05:43 BUN 14 mg/dL (7-18) 06/23/23 05:43 Creatinine 1.09 mg/dL (0.55-1.02) H 06/23/23 05:43 Est GFR (MDRD) Af Amer > 60 (>60) 06/23/23 05:43 Est GFR (MDRD) Non-Af 52 (>60) L 06/23/23 05:43 Glucose 111 mg/dL (65-99) H 06/23/23 05:43 Calcium 8.0 mg/dL (8.5-10.1) L 06/23/23 05:43 Corrected Calcium 9.3 mg/dL (8.5-10.1) 06/23/23 05:43 Magnesium 2.1 mg/dL (2.0-2.9) 06/23/23 05:43 Total Bilirubin 0.50 mg/dL (0.2-1.0) 06/23/23 05:43 AST 25 Units/L (15-37) 06/23/23 05:43 ALT 17 Units/L (12-78) 06/23/23 05:43 Alkaline Phosphatase 75 Units/L (46-116) 06/23/23 05:43 Creatine Kinase 188 Units/L (26-192) 06/23/23 05:43 Troponin I High Sens 68.0 ng/L (4.0-60.0) H* 06/23/23 12:35 Total Protein 5.1 g/dL (6.4-8.2) L 06/23/23 05:43 Albumin 2.4 g/dL (3.4-5.0) L 06/23/23 05:43 Globulin 2.7 g/dL (2.5-4.5) 06/23/23 05:43 Albumin/Globulin Ratio 0.9 Ratio (1.1-2.1) L 06/23/23 05:43 Lipase 35 Units/L (16-77) 06/22/23 12:34 Plan (1) Acute hypokalemia: Status: Acute Narrative Support Text: CE AND EKG BP CONTROL, IV HYDRATION AND POTASSIUM REPLACEMENT BID PPI THERAPY GI CONSULT AM LABS (2) Weakness: Status: Acute (3) Dysphagia: Status: Acute (4) Elevated troponin: Status: Acute (5) Afib: Status: Acute
[2023-06-23] MEDS ORDERED: POTASSIUM CHLORIDE LIQ PO ONE (16:37)
[2023-06-23] MEDS: CORDARONE TAB 200 MG PO SCH (16:47)
[2023-06-24] MEDS: D5 1/2 NS + KCL 20 MEQ/L 1,000 ML IV SCH ×2 (00:38→08:45)
[2023-06-24 06:28] LABS: BASOPHILS % (AUTO) 1.1 % (0.2-1.0); EOSINOPHILS # (AUTO) 0.3 x10^3/uL (0.0-0.2); EOSINOPHILS % (AUTO) 6.8 % (0.9-2.9); HEMATOCRIT 34.5 % (36.0-47.0); HEMOGLOBIN 11.2 g/dL (12.0-16.0); LYMPHOCYTES # (AUTO) 0.9 X10^3/uL (1.3-2.9); MEAN CORPUSCULAR HEMOGLOBIN 24.7 pg (27.0-34.0); MEAN CORPUSCULAR HGB CONC 32.4 g/dL (33.0-35.0); MEAN CORPUSCULAR VOLUME 76.1 fL (80.0-100.0); MEAN PLATELET VOLUME 9.9 fL (7.4-11.0); MONOCYTES # (AUTO) 0.5 x10^3/uL (0.3-0.8); MONOCYTES % (AUTO) 13.2 % (0.0-13.0); NEUTROPHILS # (AUTO) 2.4 x10^3/uL (2.2-4.8); NEUTROPHILS % (AUTO) 57.9 % (42.0-75.0); PLATELET COUNT 175 X10^3/uL (150.0-450.0); RED BLOOD COUNT 4.54 X10^6/uL (3.5-5.4); RED CELL DISTRIBUTION WIDTH 16.2 % (11.6-16.5); WHITE BLOOD COUNT 4.1 X10^3/uL (3.6-10.0)
[2023-06-24 07:00] LABS: ALANINE AMINOTRANSFERASE 18 Units/L (12-78); ALBUMIN 2.3 g/dL (3.4-5.0); ALKALINE PHOSPHATASE 74 Units/L (46-116); ASPARTATE AMINO TRANSFERASE 23 Units/L (15-37); BLOOD UREA NITROGEN 8 mg/dL (7-18); CARBON DIOXIDE 30.1 mmol/L (21-32); CHLORIDE 108 mmol/L (98-107); COR CA(FOR HYPOALB) 9.4 mg/dL (8.5-10.1); COR NA(FOR HYPERGLY) 145 mmol/L (136-145); CREATININE 0.96 mg/dL (0.55-1.02); GLUCOSE 111 mg/dL (65-99); SODIUM 145 mmol/L (136-145); TOTAL PROTEIN 4.8 g/dL (6.4-8.2); eGFR NON BLACK RACES > 60 (>60)
[2023-06-24 07:02] LABS: POTASSIUM 2.3 mmol/L (3.5-5.1)
[2023-06-24] MEDS: CORDARONE TAB 200 MG PO SCH ×2 (08:44→20:12)
[2023-06-24] MEDS: PROTONIX INJ 40 MG VIAL IVP SCH ×2 (08:46→20:12)
[2023-06-24] MEDS: LOVENOX INJ 40 MG SYR SC SCH (08:46)
[2023-06-24] MEDS: D5 IV SCH ×4 (09:06→19:13)
[2023-06-24] MEDS: POTASSIUM CHLORIDE IV SCH ×4 (09:06→19:13)
[2023-06-24] MEDS: KCL IV SCH ×4 (09:06→19:13)
[2023-06-24] MEDS: 1/2 NS IV SCH ×4 (09:06→19:13)
[2023-06-24 10:53] VITALS: BMI 32.3
[2023-06-24 17:51] LABS: BILIRUBIN,URINE NEGATIVE (NEGATIVE); BLOOD/HEMOGLOBIN,URINE NEGATIVE (NEGATIVE); GLUCOSE, URINE NEGATIVE (NEGATIVE); KETONES,URINE NEGATIVE (NEGATIVE); LEUKOCYTE ESTERASE ,URINE 1+ (NEGATIVE); NITRITES,URINE NEGATIVE (NEGATIVE); PROTEIN,URINE 1+ (NEGATIVE); UROBILINOGEN,URINE NORMAL (NORMAL)
[2023-06-24 18:04] LABS: APPEARANCE,URINE SLIGHTLY HAZY (CLEAR); COLOR,URINE YELLOW (YELLOW)
[2023-06-24 18:05] LABS: BACTERIA,URINE 2+ /HPF (NEGATIVE); RBC,URINE 0-2 /HPF (0-3); SQUAMOUS EPITHELIAL CELL,UR MODERATE /HPF (NEGATIVE)
[2023-06-25] MEDS: KCL IV SCH ×8 (04:13→08:37)
[2023-06-25] MEDS: 1/2 NS IV SCH ×17 (04:13→21:04)
[2023-06-25] MEDS: D5 IV SCH ×17 (04:13→21:04)
[2023-06-25] MEDS: POTASSIUM CHLORIDE IV SCH ×17 (04:13→21:04)
[2023-06-25 05:54] LABS: BASOPHILS % (AUTO) 1.3 % (0.2-1.0); EOSINOPHILS # (AUTO) 0.3 x10^3/uL (0.0-0.2); EOSINOPHILS % (AUTO) 8.2 % (0.9-2.9); HEMOGLOBIN 10.4 g/dL (12.0-16.0); LYMPHOCYTES # (AUTO) 0.8 X10^3/uL (1.3-2.9); LYMPHOCYTES % (AUTO) 21.9 % (21.0-51.0); MEAN CORPUSCULAR HEMOGLOBIN 24.7 pg (27.0-34.0); MEAN CORPUSCULAR HGB CONC 32.4 g/dL (33.0-35.0); MEAN CORPUSCULAR VOLUME 76.3 fL (80.0-100.0); MEAN PLATELET VOLUME 10.7 fL (7.4-11.0); MONOCYTES # (AUTO) 0.6 x10^3/uL (0.3-0.8); MONOCYTES % (AUTO) 16.6 % (0.0-13.0); NEUTROPHILS # (AUTO) 1.8 x10^3/uL (2.2-4.8); PLATELET COUNT 185 X10^3/uL (150.0-450.0); RED BLOOD COUNT 4.19 X10^6/uL (3.5-5.4); RED CELL DISTRIBUTION WIDTH 16.1 % (11.6-16.5); WHITE BLOOD COUNT 3.4 X10^3/uL (3.6-10.0)
[2023-06-25 06:10] LABS: ALANINE AMINOTRANSFERASE 18 Units/L (12-78); ALBUMIN 2.1 g/dL (3.4-5.0); ALKALINE PHOSPHATASE 82 Units/L (46-116); ASPARTATE AMINO TRANSFERASE 24 Units/L (15-37); BLOOD UREA NITROGEN 5 mg/dL (7-18); CALCIUM 7.9 mg/dL (8.5-10.1); CARBON DIOXIDE 27.2 mmol/L (21-32); CHLORIDE 110 mmol/L (98-107); COR CA(FOR HYPOALB) 9.4 mg/dL (8.5-10.1); COR NA(FOR HYPERGLY) 145 mmol/L (136-145); CREATININE 1.02 mg/dL (0.55-1.02); GLUCOSE 112 mg/dL (65-99); MAGNESIUM 1.6 mg/dL (2.0-2.9); SODIUM 145 mmol/L (136-145); TOTAL PROTEIN 4.5 g/dL (6.4-8.2); eGFR NON BLACK RACES 56 (>60)
[2023-06-25 06:15] LABS: POTASSIUM 2.6 mmol/L (3.5-5.1)
[2023-06-25] MEDS ORDERED: CONSULT PHARMACY - POTASSIUM & MAGNESIUM XX SCH (07:00)
[2023-06-25] MEDS: LOVENOX INJ 40 MG SYR SC SCH (08:34)
[2023-06-25] MEDS: PROTONIX INJ 40 MG VIAL IVP SCH ×2 (08:34→20:40)
[2023-06-25] MEDS: CORDARONE TAB 200 MG PO SCH ×2 (08:35→20:52)
[2023-06-25] MEDS ORDERED: K-DUR TAB 20 MEQ PO SCH (09:00)
[2023-06-25] MEDS ORDERED: VSL#3 PO SCH (09:00)
[2023-06-25] MEDS ORDERED: MAG-OX TAB PO SCH (09:00)
[2023-06-25] MEDS: [UNRECOGNIZED DRUG - OTHER] IV SCH ×9 (09:52→21:04)
--- NOTE | 2023-06-25 10:31 | DR.PROGNOT ---
HOSPITAL PROGRESS NOTE Progress Note for Day of: Progress Note Date: 06/25/23 Chief Complaint Chief Complaint: Able to have only small amount of clear liquid .. No chest pain, no shortness of breath, no abdominal pain.. Potassium is still low 2.6. Troponin 71. Afebrile Past Medical Family Social History Allergies: Allergies codeine Allergy (Verified 06/22/23 11:41) morphine Allergy (Verified 06/22/23 11:41) Vital Signs Vital Signs: Vital Signs Temperature 97.8 F Temperature 97.7 F Pulse Rate [Left] 56 Pulse Rate [Left] 61 Respiratory Rate 20 Respiratory Rate 18 Blood Pressure [Left Arm] 126/58 Blood Pressure [Left Arm] 119/60 O2 Sat by Pulse Oximetry 93 O2 Sat by Pulse Oximetry 95 Physical Exam Oriented: Normal and Other (Patient is comfortable alert and oriented.) Eyes: Normal Ear: Normal Nose: Normal Throat: Dry Cardiovascular: Bradycardia GI:Auscultation: Normal GI:Palpation: Normal GI: Tenderness: Normal Skin: Decreased Turgur Musculoskeletal: Knee (SCARS TO BILATERAL KNEES FROM TKR) Psychiatric: Normal Mood Description: Calm Affect: Normal Speech Pattern: Clear and Appropriate Laboratory and Diagnostics 06/25/23 04:50 06/25/23 04:50 Labs: 06/24/23 17:35 Urine,Clean Catch Urine Culture - Final Laboratory WBC 3.4 X10^3/uL (3.6-10.0) L 06/25/23 04:50 RBC 4.19 X10^6/uL (3.5-5.4) 06/25/23 04:50 Hgb 10.4 g/dL (12.0-16.0) L 06/25/23 04:50 Hct 32.0 % (36.0-47.0) L 06/25/23 04:50 MCV 76.3 fL (80.0-100.0) L 06/25/23 04:50 MCH 24.7 pg (27.0-34.0) L 06/25/23 04:50 MCHC 32.4 g/dL (33.0-35.0) L 06/25/23 04:50 RDW 16.1 % (11.6-16.5) 06/25/23 04:50 Plt Count 185 X10^3/uL (150.0-450.0) 06/25/23 04:50 MPV 10.7 fL (7.4-11.0) 06/25/23 04:50 Neut % (Auto) 52.0 % (42.0-75.0) 06/25/23 04:50 Lymph % (Auto) 21.9 % (21.0-51.0) 06/25/23 04:50 [place] % (Auto) 16.6 % (0.0-13.0) H 06/25/23 04:50 Eos % (Auto) 8.2 % (0.9-2.9) H 06/25/23 04:50 Baso % (Auto) 1.3 % (0.2-1.0) H 06/25/23 04:50 Neut # (Auto) 1.8 x10^3/uL (2.2-4.8) L 06/25/23 04:50 Lymph # (Auto) 0.8 X10^3/uL (1.3-2.9) L 06/25/23 04:50 [place] # (Auto) 0.6 x10^3/uL (0.3-0.8) 06/25/23 04:50 Eos # (Auto) 0.3 x10^3/uL (0.0-0.2) H 06/25/23 04:50 Baso # (Auto) 0.0 X10^3/uL (0.0-0.1) 06/25/23 04:50 Absolute Nucleated RBC 0.2 /100WBC 06/25/23 04:50 PT 13.9 SECONDS (11.8-14.3) 06/22/23 12:34 INR Target Range - 06/22/23 12:34 INR 1.09 (0.8-1.3) 06/22/23 12:34 APTT 24.2 SECONDS (22.9-36.5) 06/22/23 12:34 PTT Comment - 06/22/23 12:34 Sodium 145 mmol/L (136-145) 06/25/23 04:50 Corrected Sodium 145 mmol/L (136-145) 06/25/23 04:50 Potassium 2.6 mmol/L (3.5-5.1) L* 06/25/23 04:50 Chloride 110 mmol/L (98-107) H 06/25/23 04:50 Carbon Dioxide 27.2 mmol/L (21-32) 06/25/23 04:50 BUN 5 mg/dL (7-18) L 06/25/23 04:50 Creatinine 1.02 mg/dL (0.55-1.02) 06/25/23 04:50 Est GFR (MDRD) Af Amer > 60 (>60) 06/25/23 04:50 Est GFR (MDRD) Non-Af 56 (>60) L 06/25/23 04:50 Glucose 112 mg/dL (65-99) H 06/25/23 04:50 Calcium 7.9 mg/dL (8.5-10.1) L 06/25/23 04:50 Corrected Calcium 9.4 mg/dL (8.5-10.1) 06/25/23 04:50 Magnesium 1.6 mg/dL (2.0-2.9) L 06/25/23 04:50 Total Bilirubin 0.40 mg/dL (0.2-1.0) 06/25/23 04:50 AST 24 Units/L (15-37) 06/25/23 04:50 ALT 18 Units/L (12-78) 06/25/23 04:50 Alkaline Phosphatase 82 Units/L (46-116) 06/25/23 04:50 Creatine Kinase 188 Units/L (26-192) 06/23/23 05:43 Troponin I High Sens 71.6 ng/L (4.0-60.0) H* 06/24/23 06:10 Total Protein 4.5 g/dL (6.4-8.2) L 06/25/23 04:50 Albumin 2.1 g/dL (3.4-5.0) L 06/25/23 04:50 Globulin 2.4 g/dL (2.5-4.5) L 06/25/23 04:50 Albumin/Globulin Ratio 0.9 Ratio (1.1-2.1) L 06/25/23 04:50 Lipase 35 Units/L (16-77) 06/22/23 12:34 Specimen Type Clean catch urine 06/24/23 17:35 Urine Color Yellow (YELLOW) 06/24/23 17:35 Urine Appearance Slightly hazy (CLEAR) 06/24/23 17:35 Urine pH 6.0 (5.0 - 8.0) 06/24/23 17:35 Ur Specific [place] 1.015 (1.000-1.030) 06/24/23 17:35 Urine Protein 1+ (NEGATIVE) 06/24/23 17:35 Urine Glucose (UA) Negative (NEGATIVE) 06/24/23 17:35 Urine Ketones Negative (NEGATIVE) 06/24/23 17:35 Urine Blood Negative (NEGATIVE) 06/24/23 17:35 Urine Nitrite Negative (NEGATIVE) 06/24/23 17:35 Urine Bilirubin Negative (NEGATIVE) 06/24/23 17:35 Urine Urobilinogen Normal (NORMAL) 06/24/23 17:35 Ur Leukocyte Esterase 1+ (NEGATIVE) 06/24/23 17:35 Urine RBC 0-2 /HPF (0-3) 06/24/23 17:35 Urine WBC 10-20 /HPF (0-5) A 06/24/23 17:35 Ur Squamous Epith Cells Moderate /HPF (NEGATIVE) 06/24/23 17:35 Amorphous Sediment Trace /HPF (NEGATIVE) 06/24/23 17:35 Urine Bacteria 2+ /HPF (NEGATIVE) 06/24/23 17:35 Urine Mucus Rare /HPF (NEGATIVE) 06/24/23 17:35 Ur Culture Indicated? Yes/culture set up 06/24/23 17:35 Assessment and Plan 1: Acute dysphagia. 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 Elevated troponin level and EKG changes. Hypokalemia. Awaiting medical clearance to proceed with upper endoscopy. Problem Patient Problems: Patient Problems Weakness (Acute) R53.1 Dysphagia (Acute) R13.10 Elevated troponin (Acute) R79.89
[2023-06-25] MEDS: CYMBALTA PO SCH (12:05)
[2023-06-25] MEDS: ROCEPHIN VIAL 1 GRAM 1 G in NS 100 ML IV 100 ML IV SCH (12:05)
[2023-06-25] MEDS ORDERED: HIBICLENS WASH EXT ONE (20:10)
[2023-06-26] MEDS: POTASSIUM CHLORIDE IV SCH ×9 (03:30→18:29)
[2023-06-26] MEDS: D5 IV SCH ×9 (03:30→18:29)
[2023-06-26] MEDS: 1/2 NS IV SCH ×9 (03:30→18:29)
[2023-06-26] MEDS: [UNRECOGNIZED DRUG - OTHER] IV SCH ×9 (03:30→18:29)
[2023-06-26] MEDS ORDERED: HIBICLENS WASH ONE (03:42)
[2023-06-26 05:42] LABS: BASOPHILS % (AUTO) 1.2 % (0.2-1.0); EOSINOPHILS # (AUTO) 0.2 x10^3/uL (0.0-0.2); EOSINOPHILS % (AUTO) 6.7 % (0.9-2.9); HEMATOCRIT 34.2 % (36.0-47.0); LYMPHOCYTES # (AUTO) 0.7 X10^3/uL (1.3-2.9); LYMPHOCYTES % (AUTO) 19.4 % (21.0-51.0); MEAN CORPUSCULAR HEMOGLOBIN 24.7 pg (27.0-34.0); MEAN CORPUSCULAR HGB CONC 32.1 g/dL (33.0-35.0); MEAN CORPUSCULAR VOLUME 76.9 fL (80.0-100.0); MEAN PLATELET VOLUME 10.6 fL (7.4-11.0); MONOCYTES # (AUTO) 0.5 x10^3/uL (0.3-0.8); MONOCYTES % (AUTO) 13.2 % (0.0-13.0); NEUTROPHILS # (AUTO) 2.2 x10^3/uL (2.2-4.8); NEUTROPHILS % (AUTO) 59.5 % (42.0-75.0); PLATELET COUNT 185 X10^3/uL (150.0-450.0); RED BLOOD COUNT 4.45 X10^6/uL (3.5-5.4); RED CELL DISTRIBUTION WIDTH 16.5 % (11.6-16.5); WHITE BLOOD COUNT 3.7 X10^3/uL (3.6-10.0)
[2023-06-26 05:45] LABS: ALANINE AMINOTRANSFERASE 24 Units/L (12-78); ALBUMIN 2.4 g/dL (3.4-5.0); ALKALINE PHOSPHATASE 86 Units/L (46-116); ASPARTATE AMINO TRANSFERASE 27 Units/L (15-37); BLOOD UREA NITROGEN 4 mg/dL (7-18); CALCIUM 8.2 mg/dL (8.5-10.1); CARBON DIOXIDE 26.8 mmol/L (21-32); CHLORIDE 111 mmol/L (98-107); COR CA(FOR HYPOALB) 9.5 mg/dL (8.5-10.1); CREATININE 1.09 mg/dL (0.55-1.02); GLUCOSE 105 mg/dL (65-99); MAGNESIUM 1.9 mg/dL (2.0-2.9); POTASSIUM 3.4 mmol/L (3.5-5.1); SODIUM 145 mmol/L (136-145); TOTAL PROTEIN 4.9 g/dL (6.4-8.2); eGFR NON BLACK RACES 52 (>60)
--- NOTE | 2023-06-26 06:54 | RAD ---
EXAM:Portable abdomen series with AP chest five viewsHISTORY:Dysphagia nausea vomitingCOMPARISON:CT abdomen January 17, 2020FINDINGS:Supine/upright views of chest and abdomen were obtained with portable equipment; radiographic detail is significantly limited and suboptimal.AP chest demonstrates no acute findings.Supine/upright views of abdomen demonstrate no significant intestinal distention, free air, mass or calcification. Surgical clips noted upper abdomen.IMPRESSION:No acute findings. See above technical limitation. If symptoms persist, recommend standard non-portable examination.THIS IS AN ELECTRONICALLY VERIFIED FINAL REPORT06/26/2023 6:51 AM - Electronically signed by Benedict John MD
[2023-06-26] MEDS ORDERED: CONSULT PHARMACY - POTASSIUM & MAGNESIUM XX SCH (07:00)
[2023-06-26] MEDS: PROTONIX INJ 40 MG VIAL IVP SCH ×2 (08:36→20:01)
[2023-06-26] MEDS: CORDARONE TAB 200 MG PO SCH ×3 (08:36→20:01)
[2023-06-26] MEDS: ROCEPHIN VIAL 1 GRAM 1 G in NS 100 ML IV 100 ML IV SCH (08:36)
[2023-06-26] MEDS: CYMBALTA PO SCH ×2 (08:37→12:31)
[2023-06-26] MEDS ORDERED: MAG-OX TAB PO SCH (09:00)
[2023-06-26] MEDS ORDERED: K-DUR TAB 20 MEQ PO SCH (09:00)
[2023-06-26] MEDS: LOVENOX INJ 40 MG SYR SC SCH ×2 (11:25→12:32)
[2023-06-26] MEDS ORDERED: DIPRIVAN VIAL 20 ML ONE (11:32)
[2023-06-26] MEDS ORDERED: NS 1,000 ML IV 1,000 ML ONE (11:39)
[2023-06-26] MEDS ORDERED: K-DUR TAB 20 MEQ PO ONE (12:24)
[2023-06-26] MEDS ORDERED: MAG-OX TAB ONE (12:25)
[2023-06-27] MEDS: POTASSIUM CHLORIDE IV SCH ×3 (01:44)
[2023-06-27] MEDS: [UNRECOGNIZED DRUG - OTHER] IV SCH ×3 (01:44)
[2023-06-27] MEDS: 1/2 NS IV SCH ×3 (01:44)
[2023-06-27] MEDS: D5 IV SCH ×3 (01:44)
[2023-06-27 06:34] LABS: BASOPHILS % (AUTO) 1.1 % (0.2-1.0); EOSINOPHILS # (AUTO) 0.2 x10^3/uL (0.0-0.2); EOSINOPHILS % (AUTO) 5.5 % (0.9-2.9); HEMATOCRIT 32.7 % (36.0-47.0); HEMOGLOBIN 10.7 g/dL (12.0-16.0); LYMPHOCYTES # (AUTO) 0.9 X10^3/uL (1.3-2.9); LYMPHOCYTES % (AUTO) 22.5 % (21.0-51.0); MEAN CORPUSCULAR HGB CONC 32.6 g/dL (33.0-35.0); MEAN CORPUSCULAR VOLUME 76.9 fL (80.0-100.0); MEAN PLATELET VOLUME 10.6 fL (7.4-11.0); MONOCYTES # (AUTO) 0.5 x10^3/uL (0.3-0.8); MONOCYTES % (AUTO) 11.6 % (0.0-13.0); NEUTROPHILS # (AUTO) 2.3 x10^3/uL (2.2-4.8); NEUTROPHILS % (AUTO) 59.3 % (42.0-75.0); PLATELET COUNT 164 X10^3/uL (150.0-450.0); RED BLOOD COUNT 4.25 X10^6/uL (3.5-5.4); RED CELL DISTRIBUTION WIDTH 16.8 % (11.6-16.5); WHITE BLOOD COUNT 3.9 X10^3/uL (3.6-10.0)
[2023-06-27 06:45] LABS: ALANINE AMINOTRANSFERASE 25 Units/L (12-78); ALBUMIN 2.3 g/dL (3.4-5.0); ALKALINE PHOSPHATASE 83 Units/L (46-116); ASPARTATE AMINO TRANSFERASE 26 Units/L (15-37); BLOOD UREA NITROGEN 3 mg/dL (7-18); CALCIUM 7.9 mg/dL (8.5-10.1); CARBON DIOXIDE 26.1 mmol/L (21-32); CHLORIDE 112 mmol/L (98-107); COR CA(FOR HYPOALB) 9.3 mg/dL (8.5-10.1); CREATININE 0.94 mg/dL (0.55-1.02); GLUCOSE 109 mg/dL (65-99); MAGNESIUM 2.1 mg/dL (2.0-2.9); SODIUM 143 mmol/L (136-145); TOTAL PROTEIN 4.6 g/dL (6.4-8.2); eGFR NON BLACK RACES > 60 (>60)
[2023-06-27 08:16] VITALS: RESP 20
--- NOTE | 2023-06-27 08:57 | DR.PROGNOT ---
HOSPITAL PROGRESS NOTE Progress Note for Day of: Progress Note Date: 06/27/23 Chief Complaint Chief Complaint: Patient is status post upper endoscopy and extraction of obstructing food bolus at the gastrojejunostomy site. 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 During the procedure we were able to advance the scope through the gastrojejunostomy but there was still residual food attached to the gastrojejunostomy which could not be dislodged, there was no obstruction. Patient is feeling somewhat better and able to tolerate liquid diet Denies any chest pain, no nausea or vomiting.. Past Medical Family Social History Allergies: Allergies codeine Allergy (Verified 06/22/23 11:41) morphine Allergy (Verified 06/22/23 11:41) Review Of Systems Changes in ROS: No changes in her history Vital Signs Vital Signs: Vital Signs Temperature 98.6 F Temperature 97.8 F Pulse Rate [Left] 65 Pulse Rate [Left] 63 Respiratory Rate 20 Respiratory Rate 18 Blood Pressure [Left Arm] 131/61 Blood Pressure [Left Arm] 127/61 O2 Sat by Pulse Oximetry 98 O2 Sat by Pulse Oximetry 97 Physical Exam Oriented: Normal and Other (Patient is comfortable alert and oriented.) Eyes: Normal Ear: Normal Nose: Normal Throat: Dry Cardiovascular: Bradycardia GI:Auscultation: Normal GI:Palpation: Normal GI: Tenderness: Normal Skin: Decreased Turgur Musculoskeletal: Knee (SCARS TO BILATERAL KNEES FROM TKR) Psychiatric: Normal Mood Description: Calm Affect: Normal Speech Pattern: Clear and Appropriate Laboratory and Diagnostics 06/27/23 06:04 06/27/23 06:04 Labs: 06/24/23 17:35 Urine,Clean Catch Urine Culture - Final Laboratory WBC 3.9 X10^3/uL (3.6-10.0) 06/27/23 06:04 RBC 4.25 X10^6/uL (3.5-5.4) 06/27/23 06:04 Hgb 10.7 g/dL (12.0-16.0) L 06/27/23 06:04 Hct 32.7 % (36.0-47.0) L 06/27/23 06:04 MCV 76.9 fL (80.0-100.0) L 06/27/23 06:04 MCH 25.0 pg (27.0-34.0) L 06/27/23 06:04 MCHC 32.6 g/dL (33.0-35.0) L 06/27/23 06:04 RDW 16.8 % (11.6-16.5) H 06/27/23 06:04 Plt Count 164 X10^3/uL (150.0-450.0) 06/27/23 06:04 MPV 10.6 fL (7.4-11.0) 06/27/23 06:04 Neut % (Auto) 59.3 % (42.0-75.0) 06/27/23 06:04 Lymph % (Auto) 22.5 % (21.0-51.0) 06/27/23 06:04 [place] % (Auto) 11.6 % (0.0-13.0) 06/27/23 06:04 Eos % (Auto) 5.5 % (0.9-2.9) H 06/27/23 06:04 Baso % (Auto) 1.1 % (0.2-1.0) H 06/27/23 06:04 Neut # (Auto) 2.3 x10^3/uL (2.2-4.8) 06/27/23 06:04 Lymph # (Auto) 0.9 X10^3/uL (1.3-2.9) L 06/27/23 06:04 [place] # (Auto) 0.5 x10^3/uL (0.3-0.8) 06/27/23 06:04 Eos # (Auto) 0.2 x10^3/uL (0.0-0.2) 06/27/23 06:04 Baso # (Auto) 0.0 X10^3/uL (0.0-0.1) 06/27/23 06:04 Absolute Nucleated RBC 0.0 /100WBC 06/27/23 06:04 PT 13.9 SECONDS (11.8-14.3) 06/22/23 12:34 INR Target Range - 06/22/23 12:34 INR 1.09 (0.8-1.3) 06/22/23 12:34 APTT 24.2 SECONDS (22.9-36.5) 06/22/23 12:34 PTT Comment - 06/22/23 12:34 Sodium 143 mmol/L (136-145) 06/27/23 06:04 Corrected Sodium TNP 06/27/23 06:04 Potassium 4.0 mmol/L (3.5-5.1) 06/27/23 06:04 Chloride 112 mmol/L (98-107) H 06/27/23 06:04 Carbon Dioxide 26.1 mmol/L (21-32) 06/27/23 06:04 BUN 3 mg/dL (7-18) L 06/27/23 06:04 Creatinine 0.94 mg/dL (0.55-1.02) 06/27/23 06:04 Est GFR (MDRD) Af Amer > 60 (>60) 06/27/23 06:04 Est GFR (MDRD) Non-Af > 60 (>60) 06/27/23 06:04 Glucose 109 mg/dL (65-99) H 06/27/23 06:04 Calcium 7.9 mg/dL (8.5-10.1) L 06/27/23 06:04 Corrected Calcium 9.3 mg/dL (8.5-10.1) 06/27/23 06:04 Magnesium 2.1 mg/dL (2.0-2.9) 06/27/23 06:04 Total Bilirubin 0.20 mg/dL (0.2-1.0) 06/27/23 06:04 AST 26 Units/L (15-37) 06/27/23 06:04 ALT 25 Units/L (12-78) 06/27/23 06:04 Alkaline Phosphatase 83 Units/L (46-116) 06/27/23 06:04 Creatine Kinase 188 Units/L (26-192) 06/23/23 05:43 Troponin I High Sens 56.1 ng/L (4.0-60.0) 06/25/23 04:50 Total Protein 4.6 g/dL (6.4-8.2) L 06/27/23 06:04 Albumin 2.3 g/dL (3.4-5.0) L 06/27/23 06:04 Globulin 2.3 g/dL (2.5-4.5) L 06/27/23 06:04 Albumin/Globulin Ratio 1.0 Ratio (1.1-2.1) L 06/27/23 06:04 Lipase 35 Units/L (16-77) 06/22/23 12:34 Specimen Type Clean catch urine 06/24/23 17:35 Urine Color Yellow (YELLOW) 06/24/23 17:35 Urine Appearance Slightly hazy (CLEAR) 06/24/23 17:35 Urine pH 6.0 (5.0 - 8.0) 06/24/23 17:35 Ur Specific [place] 1.015 (1.000-1.030) 06/24/23 17:35 Urine Protein 1+ (NEGATIVE) 06/24/23 17:35 Urine Glucose (UA) Negative (NEGATIVE) 06/24/23 17:35 Urine Ketones Negative (NEGATIVE) 06/24/23 17:35 Urine Blood Negative (NEGATIVE) 06/24/23 17:35 Urine Nitrite Negative (NEGATIVE) 06/24/23 17:35 Urine Bilirubin Negative (NEGATIVE) 06/24/23 17:35 Urine Urobilinogen Normal (NORMAL) 06/24/23 17:35 Ur Leukocyte Esterase 1+ (NEGATIVE) 06/24/23 17:35 Urine RBC 0-2 /HPF (0-3) 06/24/23 17:35 Urine WBC 10-20 /HPF (0-5) A 06/24/23 17:35 Ur Squamous Epith Cells Moderate /HPF (NEGATIVE) 06/24/23 17:35 Amorphous Sediment Trace /HPF (NEGATIVE) 06/24/23 17:35 Urine Bacteria 2+ /HPF (NEGATIVE) 06/24/23 17:35 Urine Mucus Rare /HPF (NEGATIVE) 06/24/23 17:35 Ur Culture Indicated? Yes/culture set up 06/24/23 17:35 Assessment and Plan 1: Acute dysphagia. 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 Elevated troponin level and EKG changes. Hypokalemia. Corrected. Patient could be discharged on Protonix 40 mg daily and will follow her next week. She will need repeated endoscopies and dilation until the situation is corrected. 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 Problem Patient Problems: Patient Problems Weakness (Acute) R53.1 Dysphagia (Acute) R13.10 Elevated troponin (Acute) R79.89
[2023-06-27] MEDS: CORDARONE TAB 200 MG PO SCH (09:05)
[2023-06-27] MEDS: PROTONIX INJ 40 MG VIAL IVP SCH (09:05)
[2023-06-27] MEDS: ROCEPHIN VIAL 1 GRAM 1 G in NS 100 ML IV 100 ML IV SCH (09:05)
[2023-06-27] MEDS: CYMBALTA PO SCH (09:05)
[2023-06-27] MEDS: LOVENOX INJ 40 MG SYR SC SCH (09:06)
[2023-06-27 12:12] VITALS: BP 133/77; PULSE 58; TEMP 98; O2SAT 99
== END 2023-06-27 12:15 | disposition home or self-care (01) ==
LOC: ER 11:27 → MED/SURG 11:27
PROVIDERS: ADMIT Internal Medicine; ATTEND Internal Medicine
DX: R42 Dizziness and giddiness; K21.9 Gastro-esophageal reflux disease without esophagitis; I48.91 Unspecified atrial fibrillation; Z79.01 Long term (current) use of anticoagulants; E86.0 Dehydration; N39.0 Urinary tract infection, site not specified; E83.42 Hypomagnesemia; E87.6 Hypokalemia; R00.1 Bradycardia, unspecified; R77.8 Other specified abnormalities of plasma proteins; Z98.84 Bariatric surgery status; R53.1 Weakness; K22.2 Esophageal obstruction; K56.690 Other partial intestinal obstruction; R13.11 Dysphagia, oral phase; R07.89 Other chest pain; R11.2 Nausea with vomiting, unspecified